=== PATIENT | female | born 1955 | race African-American/Black ===

== ENCOUNTER → 2017-06-26 | Outpatient (CLI) | payer OTHER ==
--- NOTE | 2017-06-26 11:23 | WOMENS IMAGING REPORT ---
EXAM DESCRIPTION: BILAT SCREENING MAMMO W/CAD COMPLETED DATE/TIME: 06/26/2017 7:57 am REASON FOR STUDY: ROUTINE BILATERAL SCREENING;Z12.31 Z12.31 ENCNTR SCREEN MAMMOGRAM FOR MALIGNANT N EOPLASM OF ELI COMPARISON: 2010 to 2013 TECHNIQUE: Standard craniocaudal and mediolateral oblique views of each breast recorded using [employer] l acquisition. LIMITATIONS: None. FINDINGS: No masses, calcifications or architectural distortion. No areas of suspicion. Read with the assistance of CAD. .[facility] - R2 [employer] Version 1.3 .[facility] - R2 Cenova Version 1.3 .[facility] - R2 Cenova Version 2.4 .[facility] [place] - R2 Cenova Version 2.4 .[facility] - R2 [employer] Tester Version 9.2 IMPRESSION: NORMAL MAMMOGRAM. BIRADS 1. BREAST DENSITY: b. There are scattered areas of fibroglandular density. BIRAD: 1 NEGATIVE RECOMMENDATION: ROUTINE SCREENING COMMENT: The patient has been notified of the results by letter per SA requirements. Additional no tification policies are in place for contacting patient with suspicious or incomplete findings. Quality ID #[id number]: The [employer] recommends an annual screening mammogram for women aged 40 years or over. This facility utilizes a reminder system to ensure that all patients receive reminder letters, and/or direct phone calls for appointments. This includes reminders for routine scr eening mammograms, diagnostic mammograms, or other Breast Imaging Interventions when appropriate. Th is patient will be placed in the appropriate reminder system. The [employer] (ACR) has developed recommendations for screening MRI of the breast s in certain patient populations, to be used in conjunction with mammography. Breast MRI surveillanc e may be appropriate for women with more than 20% lifetime risk of developing breast cancer as deter mined by genetic testing, significant family history of the disease, or history of mantle radiation f or Hodgkins Disease. ACR Practice Guidelines 2008. TECHNICAL DOCUMENTATION: FINDING NUMBER: (1) ASSESSMENT: (1) JOB ID: [id number] [employer]- All Rights Reserved
== END ==
LOC: WI 08:13
PROVIDERS: ATTEND Family Medicine
DX: Z12.31 Encounter for screening mammogram for malignant neoplasm of breast (principal)
CPT/HCPCS: 77067; G0202

== ENCOUNTER 2017-06-28 08:53 | Day surgery (SDC) | payer OTHER ==
[2017-06-28] MEDS ORDERED: MIDAZOLAM 2 MG/2 ML INJ ONE (10:41)
[2017-06-28] MEDS ORDERED: PROPOFOL INJ 200 MG/20 ML VIAL IV ONE (10:41)
[2017-06-28] MEDS ORDERED: PROMETHAZINE HCL INJ 25 MG/1 ML VIAL IV PRN ×2 (10:55)
[2017-06-28] MEDS ORDERED: MEPERIDINE HCL/PF INJ 25 MG/1 ML DISP.SYRIN IV PRN (10:55)
[2017-06-28] MEDS ORDERED: DIPHENHYDRAMINE HCL 50 MG/ML VIAL IV PRN (10:55)
[2017-06-28] MEDS ORDERED: FENTANYL CITRATE INJ/PF 100 MCG/2 ML AMPUL IV PRN ×3 (10:55)
--- NOTE | 2017-06-28 11:14 | Operative Report ---
Operative Report DATE OF SURGERY: 06/28/17 Operative Report: The risks, benefits and alternatives of the procedure including risks of bleeding, perforation requiring surgery are explained to the patient in detail and informed consent is obtained. The patient is brought to the endoscopy suite and placed in a left, lateral decubital position. Timeout was called. Propofol medications administered. A rectal examination was done which did not reveal any masses, tears or fissures. An Olympus videoscope was inserted into the patient's rectum. The scope was then carefully advanced all the way to the cecum. The cecum was identified by the usual anatomical landmarks including the ileocecal valve as well as the appendiceal office. Good visualization is obtained. Prep is good. Photodocumentation was obtained. The scope was then sequentially pulled back via the various segments of the colon including the ascending colon, hepatic flexure, transverse colon, splenic flexure, descending colon finding to the rectosigmoid portions of the colon. Retroflexion maneuver was performed. PREOPERATIVE DIAGNOSIS: Surveillance colonoscopy for history of polyps POSTOPERATIVE DIAGNOSIS: Small polyp noted in the rectum status post biopsy. Diverticulosis. Internal hemorrhoids OPERATION: Colonoscopy with biopsy SURGEON: MICHAEL LEVY ANESTHESIA: LMAC TISSUE REMOVED OR ALTERED: As noted above. COMPLICATIONS: None. ESTIMATED BLOOD LOSS: None. INTRAOPERATIVE FINDINGS: As described above. PROCEDURE: Patient tolerated procedure well. No immediate postprocedure complications are noted. Patient discharged in good condition. Discharge date 06/28/2017. Discharge diet: Regular. Discharge activity: Regular. 2-3 week follow-up to discuss findings. Patient is instructed to call the office or proceed to the emergency room should there be any further problems or questions. We will await pathology. 5 year surveillance colonoscopy.
[2017-06-28 12:22] VITALS: BP 102/56
--- NOTE | 2017-06-28 21:58 | EKG REPORT ---
SEVERITY:- NORMAL ECG - SINUS RHYTHM : Confirmed by: Yosi Kahn 28-Jun-2017 21:57:55
== END 2017-06-28 12:36 | disposition home or self-care (01) ==
LOC: OROUT 08:53
PROVIDERS: ATTEND Internal Medicine Gastroenterology
PROC: 0DBP8ZX Excision of Rectum, Via Natural or Artificial Opening Endoscopic, Diagnostic (ICD-10-PCS; principal; 2017-06-28 11:00)
DX: Z12.11 Encounter for screening for malignant neoplasm of colon (principal); K62.1 Rectal polyp; K57.30 Diverticulosis of large intestine without perforation or abscess without bleeding; K64.8 Other hemorrhoids; E11.9 Type 2 diabetes mellitus without complications; I10 Essential (primary) hypertension; E78.5 Hyperlipidemia, unspecified; Z79.84 Long term (current) use of oral hypoglycemic drugs; Z79.899 Other long term (current) drug therapy
CPT/HCPCS: 45380; 36415; 82962; 84132; 88305 ×2; 93005; 93010; J2704; 810; J2250

== ENCOUNTER → 2017-09-17 | Outpatient (CLI) | payer OTHER ==
[2017-09-17 08:31] LABS: ALANINE AMINOTRANSFERASE 22 U/L (9-52); ALBUMIN 4.4 g/dL (3.5-5.0); ALKALINE PHOSPHATASE 78 U/L (38-126); ANION GAP 13 (5-19); ASPARTATE AMINO TRANSFERASE 30 U/L (14-36); BILIRUBIN,DIRECT 0.3 mg/dL (0.0-0.4); BLOOD UREA NITROGEN 23 mg/dL (7-20); CALCIUM 9.9 mg/dL (8.4-10.2); CARBON DIOXIDE 29 mmol/L (22-30); CHLORIDE 103 mmol/L (98-107); CHOLESTEROL 149.45 mg/dL (0-200); CREATININE RESULT 0.79 mg/dL (0.52-1.25); Direct HDL 51 mg/dL (>40); GLUCOSE 101 mg/dL (75-110); MAGNESIUM 1.9 mg/dL (1.6-2.3); POTASSIUM 4.5 mmol/L (3.6-5.0); TOTAL PROTEIN 6.9 g/dL (6.3-8.2); TRIGLYCERIDES 97 mg/dL (<150)
[2017-09-17 08:41] LABS: DIRECT LDL 75 mg/dL (<100)
== END ==
LOC: OD 07:12
PROVIDERS: ATTEND Internal Medicine Cardiovascular Disease
DX: E05.90 Thyrotoxicosis, unspecified without thyrotoxic crisis or storm (principal); E78.2 Mixed hyperlipidemia; Z79.899 Other long term (current) drug therapy; R00.2 Palpitations
CPT/HCPCS: 36415; 80048; 80061; 80076; 83735; 84439; 84443

== ENCOUNTER → 2017-09-27 | Outpatient (CLI) | payer OTHER ==
[2017-09-27 11:31] LABS: THYROID STIMULATING HORMONE 0.06 uIU/mL (0.47-4.68)
== END ==
LOC: OD 09:13
PROVIDERS: ATTEND Internal Medicine Cardiovascular Disease
DX: E05.90 Thyrotoxicosis, unspecified without thyrotoxic crisis or storm (principal)
CPT/HCPCS: 36415; 84439; 84443

== ENCOUNTER → 2017-11-07 | Outpatient (CLI) | payer OTHER ==
--- NOTE | 2017-11-08 14:10 | RADIOLOGY REPORT (SQ) ---
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 RADIONUCLIDE AND DOSE: 316 microcuries I-123 The route of agent administration: Oral ADDITIONAL DRUGS AND DOSES: None. TECHNIQUE: Iodine uptake was measured at 4 and 24 hours. Images of the neck were acquired. LIMITATIONS: None. FINDINGS: 4 HOUR UPTAKE RADIO-IODINE: 7.2%. Normal Range of 5-20% [facility] Normal Range of 5-15% [facility] Normal Range of 5-15% [facility] 24 HOUR UPTAKE RADIO-IODINE: 12.4%. Normal Range of 7-35% [facility] Normal Range of 8-35% [facility] Normal Range of 15-30% [facility] SCAN: Heterogeneous uptake within normal size gland. OTHER: No other significant finding. IMPRESSION: Decreased uptake. Heterogeneous gland. NORMAL UPTAKE OF IODINE. TECHNICAL DOCUMENTATION: JOB ID: [id number] [employer]- All Rights Reserved
== END ==
LOC: RAD 08:38
PROVIDERS: ATTEND Internal Medicine Endocrinology, Diabetes & Metabolism
DX: E04.2 Nontoxic multinodular goiter (principal)
CPT/HCPCS: 78014; A9516

== ENCOUNTER 2018-03-10 09:46 | Emergency (ER) | payer BC, OTHER ==
[2018-03-10 09:52] VITALS: BP 121/58
[2018-03-10] MEDS ORDERED: OXYMETAZOLINE HCL 0.05% NASAL SPRAY 15 ML BOTTLE NASL ONE (10:35)
--- NOTE | 2018-03-10 10:43 | ER Document Report ---
ED General - General Chief Complaint: Nose Bleed Stated Complaint: NOSE BLEED Time Seen by Provider: 03/10/18 10:35 Notes: 62-year-old female here with complaints of nosebleeds ongoing for the past 4 months. They started when she had a cold back in October that has since long resolved but is having intermittent nosebleeds. She has been applying pressure which has been helping. At times, she was using saline nasal spray back at initial onset of the nosebleeds but has not been using it recently. She denies any nose picking or other foreign body insertion. Denies any other symptoms. TRAVEL OUTSIDE OF THE [place] IN LAST 30 DAYS: No - Related Data Allergies/Adverse Reactions: No Known Allergies Allergy (Verified 03/10/18 09:47) Past Medical History - Social History Smoking Status: Never Smoker Frequency of alcohol use: None Drug Abuse: None Family History: Reviewed & Not Pertinent Patient has suicidal ideation: No Patient has homicidal ideation: No - Past Medical History Cardiac Medical History: Reports: Hx Hypertension - ON MEDICATION Denies: Hx Coronary Artery Disease, Hx Heart Attack Pulmonary Medical History: Denies: Hx Asthma, Hx Bronchitis, Hx COPD, Hx Pneumonia Neurological Medical History: Denies: Hx Cerebrovascular Accident, Hx Seizures Endocrine Medical History: Reports: Hx Diabetes Mellitus Type 2 Renal/ Medical History: Denies: Hx Peritoneal Dialysis Musculoskeltal Medical History: Denies Hx Arthritis Past Surgical History: Reports: Hx Abdominal Surgery - Immunizations Hx Diphtheria, Pertussis, Tetanus Vaccination: Yes Review of Systems - Review of Systems Notes: See history of present illness for pertinent positive review of systems; otherwise all review of systems have been reviewed and are negative Physical Exam - Vital signs Vitals: Temp Pulse Resp BP Pulse Ox 97.8 F 94 20 121/58 L 97 03/10/18 09:51 03/10/18 09:51 03/10/18 09:51 03/10/18 09:51 03/10/18 09:51 - Notes Notes: PHYSICAL EXAMINATION: GENERAL: Well-appearing and in no acute distress. HEAD: Atraumatic, normocephalic. EYES: Pupils equal round and reactive to light, extraocular movements intact, sclera anicteric, conjunctiva are normal. ENT: nares patent, oropharynx clear without exudates. Moist mucous membranes. Nasal mucosa mildly inflamed bilaterally with minimal spots of dried blood visualized. No active bleeding. No blood in oropharynx NECK: Normal range of motion, supple without lymphadenopathy LUNGS: CTAB and equal. No wheezes rales or rhonchi. HEART: Regular rate and rhythm without murmurs ABDOMEN: Soft, no tenderness. No facial grimacing/wincing upon palpation. No guarding, no rebound. EXTREMITIES: Normal range of motion, no pitting edema. No cyanosis. NEUROLOGICAL: Cranial nerves grossly intact. Normal sensory/motor exams. PSYCH: Normal mood, normal affect. SKIN: Warm, Dry, normal turgor, no rashes or lesions noted Course - Re-evaluation Re-evalutation: 03/10/18 10:43 MEDICAL DECISION MAKING: Concern for recurrent epistaxis likely secondary to inflamed mucosa Instructed use of Vaseline to coat and moisturize nasal mucosa Also instructed on use of PRN oxymetazoline spray (denies hypertension) Will give her a take-home bottle from here and instructed follow-up PCP and/or ENT next day or few Patient understands and agrees to the plan of care - Vital Signs Vital signs: Temp Pulse Resp BP Pulse Ox 97.8 F 94 20 121/58 L 97 03/10/18 09:51 03/10/18 09:51 03/10/18 09:51 03/10/18 09:51 03/10/18 09:51 Discharge - Discharge Clinical Impression: Epistaxis Condition: Good Disposition: HOME, SELF-CARE Additional Instructions: You were seen in the emergency department at [facility]. If you were given any sedating medications, be sure not to operate heavy machinery ( example - driving) and be sure you are not too sedated to walk appropriately. Please followup with your primary physician or [facility] ) in the next few days for further management/evaluation. Please return to the emergency department for worsening of symptoms or any symptom that you deem to be concerning or life-threatening. Thank you for allowing us to be part of your care.
== END 2018-03-10 10:41 | disposition home or self-care (01) ==
LOC: ER 09:46
DX: R04.0 Epistaxis (principal); I10 Essential (primary) hypertension
CPT/HCPCS: 99283; J3490

== ENCOUNTER → 2019-03-05 | Outpatient (CLI) | payer BC | LOC: WI 11:19 | PROVIDERS: ATTEND Family Medicine | DX: Z12.31 Encounter for screening mammogram for malignant neoplasm of breast (principal) | CPT/HCPCS: 77067 ==

== ENCOUNTER → 2019-08-25 | Outpatient (CLI) | payer BC ==
--- NOTE | 2019-08-25 11:54 | WOMENS IMAGING REPORT ---
EXAM DESCRIPTION: BONE DENSITY HIP/SPINE COMPLETED DATE/TIME: 08/25/2019 10:34 am REASON FOR STUDY: M81.0 BONE SCAN M81.0 AGE-RELATED OSTEOPOROSIS W/O CURRENT PATHOLOGICAL FRAC COMPARISON: None. TECHNIQUE: Dual-Energy X-ray Absorptiometry (DEXA) of the AP Spine and Hip. LIMITATIONS: None. FINDINGS: LUMBAR SPINE: The bone mineral density (BMD) measured from L1-L4 in the AP projection correlates with a T-score of 0.4, which is normal as defined by the World Health Organization. BMD Change vs Baseline: N/A HIP: The bone mineral density (BMD) measured in the left hip correlates with a T-score of 0.1, which is no rmal as defined by the World Health Organization. BMD Change vs Baseline: N/A 10 year Fracture Risk Assessment: Major Osteoporotic Fracture: Not available. Hip Fracture: Not available. IMPRESSION: 1. LUMBAR SPINE WHO CLASSIFICATION: Normal 2. HIP WHO CLASSIFICATION: Normal OVERALL ASSESSMENT: WHO CLASSIFICATION: Normal COMMENT: The World Health Organization defines low BMD as follows: T-score: Normal: Greater than -1.0 Osteopenia: Between -1.0 and -2.5 Osteoporosis: Less than -2.5 without fractures Established osteoporosis: Less than -2.5 with fractures In general, you may wish to consider: Diagnosis Treatment Follow-up DEXA Normal BMD Prevention 2-3 years Osteopenia Prevention/Therapy 1-2 years Osteoporosis Therapy Yearly TECHNICAL DOCUMENTATION: JOB ID: [id number] [employer]- All Rights Reserved Reading location - IP/workstation name: [email or web address]
== END ==
LOC: WI 09:40
PROVIDERS: ATTEND Family Medicine
DX: M81.0 Age-related osteoporosis without current pathological fracture (principal)
CPT/HCPCS: 77080

== ENCOUNTER → 2020-04-27 | Outpatient (CLI) | payer BC | LOC: WI 13:07 | PROVIDERS: ATTEND Family Medicine | DX: Z12.31 Encounter for screening mammogram for malignant neoplasm of breast (principal) | CPT/HCPCS: 77063; 77067 ==

== ENCOUNTER 2020-05-03 18:35 | Inpatient (IN) | payer BC ==
[2020-05-03] MEDS ORDERED: NORMAL SALINE 1000 ML 1,000 ML IV ONE (18:57)
[2020-05-03] MEDS ORDERED: ONDANSETRON HCL INJ/PF 4 MG/2 ML SDV IV ONE (18:57)
--- NOTE | 2020-05-03 19:00 | ER Document Report ---
ED Medical Screen (RME) - General Chief Complaint: Abdominal Pain Stated Complaint: ABDOMINAL PAIN Time Seen by Provider: 05/03/20 18:48 Primary Care Provider: COLT LOVETT DO [Primary Care Provider] - Follow up as needed TRAVEL OUTSIDE OF THE [place] IN LAST 30 DAYS: No - HPI Notes: 05/03/20 18:58 64-year-old female presents emergency room with lower abdominal pain that starte d approximately 6 hours ago when she woke up. States that she has vomited 3 times. Reports pain is worse with eating or drinking. Tried Pepto-Bismol without any relief. Denies any new medication foods or travel. Patient states she had a colonoscopy and says that they "did not find anything", unsure of date. Patient lives alone, so no one else is sick in the household. Denies any fevers but reports chills. Denies any chest pain shortness of breath, numbness or tingling down arms or legs, sore throat, neck pain, coughing. Denies history of IBS or Crohn's. I have greeted and performed a rapid initial assessment of this patient. A comprehensive ED assessment and evaluation of the patient, analysis of test results and completion of the medical decision making process will be conducted by additional ED providers. PHYSICAL EXAMINATION: GENERAL: Well-appearing, well-nourished and in mild distress HEAD: Atraumatic, normocephalic. EYES: Pupils equal round extraocular movements intact, conjunctiva are normal. NECK: Normal range of motion CV: s1, s2 regular LUNGS: No respiratory distress abd: Right lower quadrant abdominal pain, left lower quadrant abdominal pain. No CVA tenderness appreciated bilaterally 05/03/20 18:59 - Related Data Allergies/Adverse Reactions: No Known Allergies Allergy (Verified 05/03/20 18:50) Home Medications: metformin, lisinopril, simvastatin, Past Medical History - Social History Chew tobacco use (# tins/day): No Frequency of alcohol use: None Drug Abuse: None - Past Medical History Cardiac Medical History: Reports: Hx Hypertension - ON MEDICATION Denies: Hx Coronary Artery Disease, Hx Heart Attack Pulmonary Medical History: Denies: Hx Asthma, Hx Bronchitis, Hx COPD, Hx Pneumonia Neurological Medical History: Denies: Hx Cerebrovascular Accident, Hx Seizures Endocrine Medical History: Reports: Hx Diabetes Mellitus Type 2 Renal/ Medical History: Denies: Hx Peritoneal Dialysis Musculoskeltal Medical History: Denies Hx Arthritis Past Surgical History: Reports: Hx Abdominal Surgery - Immunizations Hx Diphtheria, Pertussis, Tetanus Vaccination: Yes Physical Exam - Vital signs Vitals: Temp Pulse Resp BP Pulse Ox 99.0 F 94 20 137/67 H 100 05/03/20 18:39 05/03/20 18:39 05/03/20 18:39 05/03/20 18:39 05/03/20 18:39 Course - Vital Signs Vital signs: Temp Pulse Resp BP Pulse Ox 99 F 94 20 137/67 H 100 05/03/20 18:48 05/03/20 18:39 05/03/20 18:39 05/03/20 18:39 05/03/20 18:39 Doctor's Discharge - Discharge Referrals: COLT LOVETT DO [Primary Care Provider] - Follow up as needed
[2020-05-03 19:39] LABS: ABSOLUTE BASOPHILS # (AUTO) 0.1 10^3/uL (0.0-0.2); ABSOLUTE MONOCYTES (AUTO) 0.4 10^3/uL (0.1-1.4); ABSOLUTE NEUT (AUTO) 10.2 10^3/uL (1.7-8.2); BASOPHILS % (AUTO) 0.5 % (0-2); HEMATOCRIT 45.7 % (36.0-47.0); HEMOGLOBIN 15.5 g/dL (12.0-15.5); MEAN CORPUSCULAR VOLUME 88 fl (80-97); MONOCYTES % (AUTO) 3.6 % (3-13); PLATELET COUNT 264 10^3/uL (150-450); RED BLOOD COUNT 5.18 10^6/uL (3.72-5.28); SEGMENTED NEUTROPHILS % (AUTO) 86.9 % (42-78); TOTAL CELLS COUNTED % (AUTO) 100 %; WHITE BLOOD COUNT 11.7 10^3/uL (4.0-10.5)
[2020-05-03 19:42] LABS: APPEARANCE,URINE SLIGHTLY-CLOUDY; BILIRUBIN,URINE NEGATIVE (NEGATIVE); COLOR,URINE YELLOW; GLUCOSE, URINE NEGATIVE (NEGATIVE); KETONES,URINE TRACE mg/dL (NEGATIVE); LEUKOCYTE ESTERASE,URINE NEGATIVE (NEGATIVE); NITRITE,URINE NEGATIVE (NEGATIVE); PROTEIN,URINE NEGATIVE (NEGATIVE); URINE SPECIFIC GRAVITY 1.026
[2020-05-03 20:26] LABS: ALBUMIN 4.7 g/dL (3.5-5.0); ALKALINE PHOSPHATASE 70 U/L (38-126); ANION GAP 9 (5-19); ASPARTATE AMINO TRANSFERASE 38 U/L (14-36); BILIRUBIN,TOTAL 0.9 mg/dL (0.2-1.3); BLOOD UREA NITROGEN 19 mg/dL (7-20); CALCIUM 10.6 mg/dL (8.4-10.2); CARBON DIOXIDE 30 mmol/L (22-30); CHLORIDE 99 mmol/L (98-107); GLUCOSE 181 mg/dL (75-110); POTASSIUM 4.1 mmol/L (3.6-5.0); TOTAL PROTEIN 7.8 g/dL (6.3-8.2)
--- NOTE | 2020-05-03 21:06 | RADIOLOGY REPORT (SQ) ---
EXAM DESCRIPTION: CT ABDOMEN PELVIS WITH IV CONTRAST COMPLETED DATE/TME: 05/03/2020 18:56 CLINICAL HISTORY: 64 years, Female, LLQ/RLQ abd pain, n/v x 7 hours This exam was performed according to our departmental dose-optimization program which includes automated exposure control, adjustment of the mA and/or kVp according to patient size and/or use of iterative reconstruction technique where applicable. FINDINGS: Visualized lung bases are within normal limits. Liver, spleen, pancreas, gallbladder, adrenal glands and kidneys are within normal limits. No hydronephrosis or biliary dilatation. Moderately dilated loops of small bowel are noted in the left abdomen with transition point to decompressed loops of small bowel in the mid pelvis. The appendix is normal. Small amount of fluid layering in the pelvis. The gynecologic organs are unremarkable. No abdominal or pelvic lymphadenopathy. Abdominal aorta is mildly calcified without aneurysm. IMPRESSION: Findings of moderate mid small bowel obstruction with transition point in the mid pelvis. Small amount of fluid layering in the pelvis.
[2020-05-03] MEDS ORDERED: LIDOCAINE 2% INJ-PF (20 MG/ML) 10 ML AMPUL NEB ONE (21:30)
[2020-05-03] MEDS ORDERED: HYDROMORPHONE HCL INJ/PF 2 MG/ML AMPULE IV ONE (21:30)
--- NOTE | 2020-05-03 21:43 | ER Document Report ---
ED General - General Chief Complaint: Abdominal Pain Stated Complaint: ABDOMINAL PAIN Time Seen by Provider: 05/03/20 18:48 Primary Care Provider: COLT LOVETT DO [Primary Care Provider] - Follow up as needed Notes: 64-year-old female presents emergency department complaining of 1 day of generalized abdominal pain associate with nausea and vomiting which is nonbloody. She is passing lots of gas and says she had one small formed bowel movement this morning. Patient admits to 1 laparoscopic surgery years ago due to a displaced IUD. Denies any prior history of small bowel obstruction. Denies any fevers or chills. TRAVEL OUTSIDE OF THE [place] IN LAST 30 DAYS: No - Related Data Allergies/Adverse Reactions: No Known Allergies Allergy (Verified 05/03/20 18:50) Home Medications: metformin, lisinopril, simvastatin, Past Medical History - General Information source: Patient - Social History Smoking Status: Never Smoker Chew tobacco use (# tins/day): No Frequency of alcohol use: None Drug Abuse: None Family History: Reviewed & Not Pertinent - Past Medical History Cardiac Medical History: Reports: Hx Hypertension - ON MEDICATION Denies: Hx Coronary Artery Disease, Hx Heart Attack Pulmonary Medical History: Denies: Hx Asthma, Hx Bronchitis, Hx COPD, Hx Pneumonia Neurological Medical History: Denies: Hx Cerebrovascular Accident, Hx Seizures Endocrine Medical History: Reports: Hx Diabetes Mellitus Type 2 Renal/ Medical History: Denies: Hx Peritoneal Dialysis Musculoskeletal Medical History: Denies Hx Arthritis Past Surgical History: Reports: Hx Abdominal Surgery - Immunizations Hx Diphtheria, Pertussis, Tetanus Vaccination: Yes Review of Systems - Review of Systems Constitutional: No symptoms reported Gastrointestinal: See HPI -: Yes All other systems reviewed and negative Physical Exam - Vital signs Vitals: Temp Pulse Resp BP Pulse Ox 99.0 F 94 20 137/67 H 100 05/03/20 18:39 05/03/20 18:39 05/03/20 18:39 05/03/20 18:39 05/03/20 18:39 Interpretation: Normal - Notes Notes: GENERAL: Alert, interacts well. No acute distress. HEAD: Normocephalic, atraumatic EYES: Pupils equal, round and reactive to light, extraocular movements intact. ENT: Oral mucosa moist, tongue midline. NECK: Full range of motion, supple, trachea midline. LUNGS: Clear to auscultation bilaterally, no wheezes, rales or rhonchi, no respiratory distress. HEART: Regular rate and rhythm, no murmurs, gallops, rubs. ABDOMEN: Soft, tender palpation periumbilically and suprapubically, minimal distention, nondistended, bowel sounds present in all 4 quadrants. EXTREMITIES: Moves all 4 extremities spontaneously, no edema, radial and dorsalis pedis pulses 2/4 bilaterally. No cyanosis. NEUROLOGICAL: Alert and oriented x3, normal speech. PSYCH: Normal mood, normal affect. SKIN: Warm, Dry, normal turgor, no rashes or lesions noted. Course - Re-evaluation Re-evalutation: 05/03/20 21:45 Last menstrual period is 04/01/2020. CBC shows leukocytosis of 11.7, CMP shows elevated glucose at 181, she is a known diabetic, lactic acid minimally elevated at 2.2, urinalysis shows trace ketones. CT scan of the abdomen and pelvis with IV contrast shows small bowel obstruction. Patient is being hydrated, will be treated with a lidocaine breathing treatment for comfort and then NG tube will be placed. Discussed case with Dr. Dominguez who states he will consult and requests a CT scan of the abdomen pelvis with oral contrast. I have called hosp [facility] to try and initiate admission. I am awaiting a phone call back. No indication for emergent surgery this evening per my examination. I will await Dr. Dominguez's consult. Abdomen/Pelvis CT 05/03/20 18:56 IMPRESSION: Findings of moderate mid small bowel obstruction with transition point in the mid pelvis. Small amount of fluid layering in the pelvis. 05/03/20 22:[address] Tran to medical floor. - Vital Signs Vital signs: Temp Pulse Resp BP Pulse Ox 99 F 94 20 137/67 H 100 05/03/20 18:48 05/03/20 18:39 05/03/20 18:39 05/03/20 18:39 05/03/20 18:39 - Laboratory Result Diagrams: 05/03/20 19:14 05/03/20 19:14 Laboratory results interpreted by me: 05/03/20 05/03/20 05/03/20 19:14 19:14 19:14 WBC 11.7 H Lymph % (Auto) 9.0 L Absolute Neuts (auto) 10.2 H Seg Neutrophils % 86.9 H Glucose 181 H Lactic Acid 2.2 H Calcium 10.6 H AST 38 H Urine Ketones Urine Urobilinogen Urine Ascorbic Acid 05/03/20 19:14 WBC Lymph % (Auto) Absolute Neuts (auto) Seg Neutrophils % Glucose Lactic Acid Calcium AST Urine Ketones TRACE H Urine Urobilinogen 2.0 H Urine Ascorbic Acid 40 H Discharge - Discharge Clinical Impression: Small bowel obstruction Condition: Fair Disposition: ADMITTED INPATIENT Admitting Provider: Chelsea (Hospitalist) Unit Admitted: Medical Floor Referrals: COLT LOVETT DO [Primary Care Provider] - Follow up as needed
--- NOTE | 2020-05-03 22:01 | PDOC CONSULTATION ---
Consultation Consult Date: 05/03/20 Attending physician:: RANJEET ALMODOVAR Provider Consulted: RUPAL ROBERTS Consult reason:: Small bowel obstruction History of Present Illness Admission Date/PCP: COLT LOVETT DO History of Present Illness: BLANCA LAMB is a 64 year old female Presents to the emergency department via ground rescue complaining of 1 day history of abdominal pain, several episodes of vomiting last bowel movement, normal this morning. Patient seen the emergency department, found to have abdominal tenderness, had a CT scan of the abdomen and pelvis without oral contrast which suggested a small bowel obstruction. Surgery was consulted. Patient was found to be dehydrated. Recommendations were made for the patient to be admitted to the hospitalist service with surgery following in consultation. Patient denies previous history of small bowel obstructions. She denies history of trauma. Last colonoscopy by Dr. Muñoz, reportedly negative, 2 years ago. Past Medical History Past Medical History: Hypertension, hyperlipidemia, diabetes mellitus Cardiac Medical History: Reports: Hypertension - ON MEDICATION Denies: Coronary Artery Disease, Myocardial Infarction Pulmonary Medical History: Denies: Asthma, Bronchitis, Chronic Obstructive Pulmonary Disease (COPD), Pneumonia Neurological Medical History: Denies: Seizures Endocrine Medical History: Reports: Diabetes Mellitus Type 2 Musculoskeltal Medical History: Denies: Arthritis Hematology: Denies: Anemia Past Surgical History Past Surgical History: Oratory laparoscopy, laparotomy for displaced IUD, [facility] , many years ago Social History Information Source: Patient Smoking Status: Never Smoker Electronic Cigarette use?: No Frequency of Alcohol Use: Rare Hx Recreational Drug Use: No Hx Prescription Drug Abuse: No Family History Family History: None, Reviewed & Not Pertinent Parental Family History Reviewed: No Children Family History Reviewed: No Sibling(s) Family History Reviewed.: No Medication/Allergy Home Medications: Metformin HCl [Glucophage] 1,000 mg PO BID 09/29/14 Simvastatin 20 mg PO DAILY 09/29/14 Aspirin [Aspirin EC] 81 mg PO DAILY 06/28/17 Lisinopril/Hydrochlorothiazide [Lisinopril-Hctz 20-25 mg Tab] 1 tab PO DAILY 06/28/17 Allergies/Adverse Reactions: No Known Allergies Allergy (Verified 05/03/20 18:50) Review of Systems Constitutional: PRESENT: as per HPI Eyes: ABSENT: visual disturbances Ears: ABSENT: hearing changes Cardiovascular: ABSENT: chest pain, dyspnea on exertion, edema, orthropnea, palpitations Genitourinary: ABSENT: dysuria, hematuria Musculoskeletal: ABSENT: joint swelling Neurological: ABSENT: abnormal gait, abnormal speech, confusion, dizziness, focal weakness, syncope Psychiatric: ABSENT: anxiety, depression, homidical ideation, suicidal ideation Endocrine: ABSENT: cold intolerance, heat intolerance, polydipsia, polyuria Physical Exam Vital Signs: Temp Pulse Resp BP Pulse Ox 99 F 94 20 137/67 H 100 05/03/20 18:48 05/03/20 18:39 05/03/20 18:39 05/03/20 18:39 05/03/20 18:39 Intake & Output 05/02/20 05/03/20 05/04/20 06:59 06:59 06:59 Weight 65.1 kg General appearance: PRESENT: no acute distress Head exam: PRESENT: normocephalic Eye exam: PRESENT: EOMI Mouth exam: PRESENT: dry mucosa Neck exam: PRESENT: full ROM Respiratory exam: PRESENT: clear to auscultation anitha Cardiovascular exam: PRESENT: RRR Pulses: PRESENT: normal carotid pulses, normal radial pulses GI/Abdominal exam: PRESENT: distended - No peritoneal signs no rigidity, mildly distended. No groin or umbilical masses. Rectal exam: PRESENT: deferred Extremities exam: PRESENT: full ROM Neurological exam: PRESENT: oriented to person, oriented to place, oriented to time Psychiatric exam: PRESENT: appropriate affect Skin exam: PRESENT: dry Results Laboratory Results: 05/03/20 19:14 05/03/20 19:14 05/03/20 05/03/20 05/03/20 19:14 19:14 19:14 WBC 11.7 H RBC 5.18 Hgb 15.5 Hct 45.7 MCV 88 MCH 30.0 MCHC 34.0 RDW 14.0 Plt Count 264 Seg Neutrophils % 86.9 H Sodium 137.8 Potassium 4.1 Chloride 99 Carbon Dioxide 30 Anion Gap 9 BUN 19 Creatinine 0.76 Est GFR ( Amer) > 60 Glucose 181 H Lactic Acid 2.2 H Calcium 10.6 H Total Bilirubin 0.9 AST 38 H Alkaline Phosphatase 70 Total Protein 7.8 Albumin 4.7 Lipase 78.2 Urine Color Urine Appearance Urine pH Ur Specific [place] Urine Protein Urine Glucose (UA) Urine Ketones Urine Blood Urine Nitrite Ur Leukocyte Esterase Urine WBC (Auto) Urine RBC (Auto) 05/03/20 19:14 WBC RBC Hgb Hct MCV MCH MCHC RDW Plt Count Seg Neutrophils % Sodium Potassium Chloride Carbon Dioxide Anion Gap BUN Creatinine Est GFR ( Amer) Glucose Lactic Acid Calcium Total Bilirubin AST Alkaline Phosphatase Total Protein Albumin Lipase Urine Color YELLOW Urine Appearance SLIGHTLY-CLOUDY Urine pH 6.0 Ur Specific [place] 1.026 Urine Protein NEGATIVE Urine Glucose (UA) NEGATIVE Urine Ketones TRACE H Urine Blood NEGATIVE Urine Nitrite NEGATIVE Ur Leukocyte Esterase NEGATIVE Urine WBC (Auto) 10 Urine RBC (Auto) 2 Impressions: Abdomen/Pelvis CT 05/03/20 18:56 IMPRESSION: Findings of moderate mid small bowel obstruction with transition point in the mid pelvis. Small amount of fluid layering in the pelvis. Assessment & Plan - Diagnosis (1) Small bowel obstruction Is this a current diagnosis for this admission?: Yes Plan: Impression: Stable early partial small bowel obstruction based on history physical exam findings and none oral contrast CT scan. The patient does not have peritoneal signs, does not need emergent exploration Recommendations: 1. Discussed my impression with Dr. Ranjeet Almodovar; suggested that the patient be admitted to the hospitalist service for hydration, management of chronic medical problems and observation. I have reviewed the CT scan carefully, and there is a fair amount of stagnant material in the early to mid small bowel with gas; there is no free peritoneal fluid, or evidence of vascular compromise to the bowel. There is some gas in the colon. 2. For a more meaningful CT scan, I suggested the patient drink oral contrast and repeat the abdominal scan. If she cannot, then a nasogastric tube with contrast infusion may be helpful in ruling out a true mechanical obstruction. 3. We will follow patient in consultation with hospitalist service (2) Hypertension Is this a current diagnosis for this admission?: Yes (3) Diabetes mellitus Is this a current diagnosis for this admission?: Yes (4) Hypercholesterolemia Is this a current diagnosis for this admission?: Yes - Time Time Spent: 30 to 50 Minutes Smoking Cessation Education: over 10 minutes Medications reviewed and adjusted accordingly: Yes Anticipated discharge: Home
[2020-05-03] MEDS ORDERED: MORPHINE SULFATE 10 MG/ML INJ IV PRN ×3 (22:08→22:23)
[2020-05-03] MEDS ORDERED: DEXTROSE 50%-WATER 25 GM/50 ML DISP.SYRIN IV PRN ×2 (22:08)
[2020-05-03] MEDS ORDERED: ACETAMINOPHEN 650 MG SUPP.RECT PR PRN (22:08)
[2020-05-03] MEDS ORDERED: DEXTROSE 40% GEL 15 GM TUBE PO PRN ×2 (22:08)
[2020-05-03] MEDS ORDERED: HYDRALAZINE HCL INJ/PF 20 MG/1 ML SDV IV PRN (22:08)
[2020-05-03] MEDS ORDERED: LORAZEPAM INJ 2 MG/1 ML VIAL IV PRN (22:08)
[2020-05-03] MEDS ORDERED: NICOTINE 21 MG/24 HR PATCH.TD24 TD PRN (22:08)
[2020-05-03] MEDS ORDERED: METOPROLOL TARTRATE PF/INJ 5 MG/5 ML SDV IV PRN (22:08)
[2020-05-03] MEDS ORDERED: GLUCAGON,HUMAN RECOMB 1 MG INJ IM PRN (22:08)
--- NOTE | 2020-05-04 00:16 | PDOC H&P ---
History of Present Illness Admission Date/PCP: 05/03/2020 22:16 COLT LOVETT DO Patient complains of: Abdominal pain History of Present Illness: BLANCA LAMB is a 64 year old female who presents the emergency room with acute abdominal pain. She admits being awoken from sleep this morning by constant lower abdominal colicky pain that was of moderately severe intensity initially but progressively worsened over the course of the day becoming generalized throughout her abdomen, without radiation. She had a normal bowel movement and passed a large amount of flatus this morning without improvement or resolution of the abdominal pain. She tried taking Pepto-Bismol also without improvement. Her pain became severe and was accompanied by numerous episodes of vomiting and continuous nausea. Her abdominal pain was associated with episodic chills after vomiting. Her pain was worsened by oral ingestion of food or liquids. She denies other associated or accompanying signs and symptoms. She denies prior similar episodes. She has not identified any additional aggravating or ameliorating factors for her abdominal pain. In the emergency room she was found to have a small bowel obstruction by CT of the abdomen. She was evaluated by Dr. Dominguez and he has asked the hospitalist service to admit the patient and consult him for surgical care. Patient was subsequently admitte d to the hospital for further evaluation treatment. Past Medical History Cardiac Medical History: Reports: Hyperlipidema, Hypertension, Heart Murmur Denies: Atrial Fibrillation, Coronary Artery Disease, DVT, Myocardial Infarction, Pulmonary Embolism Pulmonary Medical History: Denies: Asthma, Bronchitis, Chronic Obstructive Pulmonary Disease (COPD), Pneumonia EENT Medical History: Denies: Cataracts, Ears - Hearing aids Neurological Medical History: Denies: Hemorrhagic CVA, Ischemic CVA, Seizures Endocrine Medical History: Reports: Diabetes Mellitus Type 2 Denies: Diabetes Mellitus Type 1, Hyperthyroidism, Hypothyroidism, Obesity Renal/ Medical History: Denies: Chronic Kidney Disease, Nephrolithiasis Malignancy Medical History: Reports: None GI Medical History: Reports: Other - Colon polyps (benign) Denies: Cirrhosis, Crohn's Disease, Hepatitis, Peptic Ulcer Disease, Ulcerative Colitis Musculoskeltal Medical History: Denies: Arthritis, Gout Skin Medical History: Denies: Eczema, Psoriasis Psychiatric Medical History: Denies: Alcohol Dependency, Substance Abuse, Tobacco Dependency Traumatic Medical History: Reports: None Hematology: Denies: Anemia, Bleeding Tendencies Infectious Medical History: Reports: None Past Surgical History Past Surgical History: Reports: Other - Laparoscopic removal of an extrauterine IUD, colonoscopies Social History Information Source: Patient Lives with: Alone Smoking Status: Never Smoker Electronic Cigarette use?: No Frequency of Alcohol Use: Rare Hx Recreational Drug Use: No Drugs: None Hx Prescription Drug Abuse: No - Advance Directive Resuscitation Status: Full Code Surrogate healthcare decision maker:: Priti Lamb Family History Family History: DM, Hypertension. denies: CAD, Malignancy Parental Family History Reviewed: Yes Children Family History Reviewed: No Sibling(s) Family History Reviewed.: Yes Medication/Allergy Home Medications: Metformin HCl [Glucophage] 1,000 mg PO BID 09/29/14 Simvastatin 20 mg PO DAILY 09/29/14 Aspirin [Aspirin EC] 81 mg PO DAILY 06/28/17 Lisinopril/Hydrochlorothiazide [Lisinopril-Hctz 20-25 mg Tab] 1 tab PO DAILY 06/28/17 Allergies/Adverse Reactions: No Known Allergies Allergy (Verified 05/03/20 18:50) Review of Systems Constitutional: PRESENT: as per HPI, chills. ABSENT: fever(s) Eyes: ABSENT: visual disturbances, other - Eye pain Ears: ABSENT: hearing changes, other - Ear pain Nose, Mouth, and Throat: ABSENT: headache(s), sore throat Cardiovascular: ABSENT: chest pain, palpitations Respiratory: ABSENT: cough, dyspnea Gastrointestinal: PRESENT: as per HPI, abdominal pain, nausea, vomiting. ABSENT: constipation, diarrhea Genitourinary: ABSENT: dysuria, hematuria Musculoskeletal: ABSENT: back pain, joint swelling Integumentary: ABSENT: pruritus, rash Neurological: ABSENT: confusion, convulsions, focal weakness, memory loss, syncope Psychiatric: ABSENT: anxiety, depression Endocrine: ABSENT: cold intolerance, heat intolerance, polydipsia, polyphagia, polyuria Hematologic/Lymphatic: ABSENT: easy bleeding, easy bruising Allergic/Immunologic: ABSENT: seasonal rhinorrhea Physical Exam Vital Signs: Temp Pulse Resp BP Pulse Ox 99 F 94 20 137/67 H 100 05/03/20 18:48 05/03/20 18:39 05/03/20 18:39 05/03/20 18:39 05/03/20 18:39 Intake & Output 05/01/20 05/02/20 05/03/20 23:59 23:59 23:59 Intake Total 1000 Balance 1000 Weight 65.1 kg General appearance: PRESENT: cooperative, mild distress - Secondary to abdominal pain Head exam: PRESENT: atraumatic, normocephalic Eye exam: PRESENT: conjunctiva pink. ABSENT: conjunctival injection, scleral icterus Ear exam: PRESENT: normal external ear exam. ABSENT: bleeding, drainage Mouth exam: PRESENT: dry mucosa, neck supple, other - NG tube in place Neck exam: ABSENT: thyromegaly, tracheal deviation Respiratory exam: PRESENT: clear to auscultation anitha, symmetrical, unlabored Cardiovascular exam: PRESENT: RRR. ABSENT: clicks, gallop, rubs Pulses: PRESENT: normal radial pulses, normal dorsalis pedis pul Vascular exam: PRESENT: normal capillary refill. ABSENT: pallor GI/Abdominal exam: PRESENT: distended - Mild distention, hypoactive bowel sounds, soft, tenderness - Mild generalized tenderness to palpation, other - NG tube in place Rectal exam: PRESENT: deferred Extremities exam: ABSENT: joint swelling, pedal edema Musculoskeletal exam: ABSENT: deformity, dislocation Neurological exam: PRESENT: alert, oriented to person, oriented to place, oriented to time, oriented to situation, CN II-XII grossly intact. ABSENT: motor sensory deficit Psychiatric exam: PRESENT: appropriate affect, normal mood Skin exam: PRESENT: dry, intact, warm. ABSENT: jaundice, rash, urticaria Results Laboratory Results: 05/03/20 19:14 05/03/20 19:14 05/03/20 05/03/20 05/03/20 19:14 19:14 19:14 WBC 11.7 H RBC 5.18 Hgb 15.5 Hct 45.7 MCV 88 MCH 30.0 MCHC 34.0 RDW 14.0 Plt Count 264 Seg Neutrophils % 86.9 H Sodium 137.8 Potassium 4.1 Chloride 99 Carbon Dioxide 30 Anion Gap 9 BUN 19 Creatinine 0.76 Est GFR ( Amer) > 60 Glucose 181 H Lactic Acid 2.2 H Calcium 10.6 H Total Bilirubin 0.9 AST 38 H Alkaline Phosphatase 70 Total Protein 7.8 Albumin 4.7 Lipase 78.2 Urine Color Urine Appearance Urine pH Ur Specific [place] Urine Protein Urine Glucose (UA) Urine Ketones Urine Blood Urine Nitrite Ur Leukocyte Esterase Urine WBC (Auto) Urine RBC (Auto) 05/03/20 19:14 WBC RBC Hgb Hct MCV MCH MCHC RDW Plt Count Seg Neutrophils % Sodium Potassium Chloride Carbon Dioxide Anion Gap BUN Creatinine Est GFR ( Amer) Glucose Lactic Acid Calcium Total Bilirubin AST Alkaline Phosphatase Total Protein Albumin Lipase Urine Color YELLOW Urine Appearance SLIGHTLY-CLOUDY Urine pH 6.0 Ur Specific [place] 1.026 Urine Protein NEGATIVE Urine Glucose (UA) NEGATIVE Urine Ketones TRACE H Urine Blood NEGATIVE Urine Nitrite NEGATIVE Ur Leukocyte Esterase NEGATIVE Urine WBC (Auto) 10 Urine RBC (Auto) 2 Impressions: Abdomen/Pelvis CT 05/03/20 18:56 IMPRESSION: Findings of moderate mid small bowel obstruction with transition point in the mid pelvis. Small amount of fluid layering in the pelvis. Assessment and Plan - Diagnosis (1) Small bowel obstruction Is this a current diagnosis for this admission?: Yes (2) Diabetes mellitus type 2 in nonobese Is this a current diagnosis for this admission?: Yes (3) Hypertension Qualifiers: Hypertension type: essential hypertension Qualified Code(s): I10 - Essen tial (primary) hypertension Is this a current diagnosis for this admission?: Yes (4) Hypercholesterolemia Is this a current diagnosis for this admission?: Yes - Plan Summary Summary: Patient will be admitted to the medical floor where she will receive routine supportive and symptomatic cares. Dr. Dominguez will be consulted for surgical evaluation and treatment. She will be given IV fluids utilizing normal saline at 175 mL/h initially. She will receive morphine sulfate 2 to 4 mg IV every 2 hours as needed for pain. She will use Ativan 1 mg IV every 4 hours as needed for anxiety or restlessness. An NG tube has been placed per Dr. Dominguez's orders. CBCs, metabolic profiles, magnesium levels and additional laboratory and/or radiographic evaluations will be obtained as needed. Every 6 hours Accu- Cheks will be performed with sliding scale insulin for hyperglycemia and a hy poglycemic protocol in place. IV metoprolol and/or hydralazine will be used to control blood pressures greater than 160/100 while the patient is unable to take oral medications. She will be n.p.o. - Time Time Spent with patient: 15-24 minutes Medications reviewed and adjusted accordingly: Yes Anticipated discharge: Home - Inpatient Certification Based on my medical assessment, after consideration of the patient's comorbidities, presenting symptoms, or acuity I expect that the services needed warrant INPATIENT care.: Yes I certify that my determination is in accordance with my understanding of Medicare's requirements for reasonable and necessary INPATIENT services [42 CFR 412.3e].: Yes Medical Necessity: Need Close Monitoring Due to Risk of Patient Decompensation, Need For IV Fluids, Need for Pain Control, Risk of Complication if Not Cared For in Hospital
[2020-05-04] MEDS: PANTOPRAZOLE SODIUM 40 MG VIAL IV SCH ×3 (00:34→21:48)
[2020-05-04] MEDS: INSULIN REG, HUMAN 100 UNIT/ML 3 ML VIAL (PYX) SUBCUT SCH ×4 (00:36→17:37)
[2020-05-04] MEDS: NORMAL SALINE 1000 ML 1,000 ML IV PRN ×2 (03:12→18:13)
[2020-05-04] MEDS: HEPARIN SOD (PORCINE) 5,000 UNIT/ML 1 ML VIAL SUBCUT SCH ×3 (05:58→21:48)
[2020-05-04 06:38] LABS: VENOUS BLOOD BASE EXCESS 0.3 mmol/L; VENOUS BLOOD HCO3 26.8 mmol/L (20-32); VENOUS BLOOD PCO2 50.5 mmHg (35-63); VENOUS BLOOD PH 7.34 (7.30-7.42)
[2020-05-04 06:45] LABS: ABSOLUTE BASOPHILS # (AUTO) 0.1 10^3/uL (0.0-0.2); ABSOLUTE LYMPHOCYTES (AUTO) 1.8 10^3/uL (0.5-4.7); ABSOLUTE MONOCYTES (AUTO) 0.9 10^3/uL (0.1-1.4); ABSOLUTE NEUT (AUTO) 9.2 10^3/uL (1.7-8.2); BASOPHILS % (AUTO) 0.8 % (0-2); EOSINOPHILS % (AUTO) 0.1 % (0-6); HEMATOCRIT 40.8 % (36.0-47.0); HEMOGLOBIN 13.8 g/dL (12.0-15.5); LYMPHOCYTES % (AUTO) 15.3 % (13-45); MEAN CORPUSCULAR HEMOGLOBIN 30.1 pg (27.0-33.4); MEAN CORPUSCULAR HGB CONC 33.8 g/dL (32.0-36.0); MEAN CORPUSCULAR VOLUME 89 fl (80-97); MONOCYTES % (AUTO) 7.3 % (3-13); PLATELET COUNT 249 10^3/uL (150-450); RED BLOOD COUNT 4.59 10^6/uL (3.72-5.28); SEGMENTED NEUTROPHILS % (AUTO) 76.5 % (42-78); TOTAL CELLS COUNTED % (AUTO) 100 %
[2020-05-04 06:57] LABS: CHOLESTEROL 166.63 mg/dL (0-200); TRIGLYCERIDES 95 mg/dL (<150)
[2020-05-04 07:03] LABS: AMYLASE 83 U/L (30-110); ANION GAP 8 (5-19); BLOOD UREA NITROGEN 18 mg/dL (7-20); CARBON DIOXIDE 26 mmol/L (22-30); CHLORIDE 103 mmol/L (98-107); GLUCOSE 144 mg/dL (75-110); POTASSIUM 3.8 mmol/L (3.6-5.0)
[2020-05-04 07:07] LABS: DIRECT LDL 74 mg/dL (<100)
[2020-05-04] MEDS: MORPHINE SULFATE 10 MG/ML INJ IV PRN ×2 (09:11→18:19)
--- NOTE | 2020-05-04 11:51 | PDOC PROGRESS REPORT ---
Subjective Progress Note for:: 05/04/20 Subjective:: feels alittle better no flatus or stool Reason For Visit: ACUTE SMALL BOWEL OBSTRUCTION Physical Exam Vital Signs: Temp Pulse Resp BP Pulse Ox 98.5 F 80 16 141/65 H 99 05/04/20 08:05 05/04/20 08:05 05/04/20 08:05 05/04/20 08:05 05/04/20 08:05 Intake & Output 05/03/20 05/04/20 05/05/20 06:59 06:59 06:59 Intake Total 1000 Balance 1000 Weight 53.2 kg General appearance: PRESENT: no acute distress Head exam: PRESENT: normocephalic Eye exam: PRESENT: EOMI Ear exam: PRESENT: normal external ear exam Mouth exam: PRESENT: moist Neck exam: PRESENT: full ROM Respiratory exam: PRESENT: clear to auscultation anitha Cardiovascular exam: PRESENT: RRR Pulses: PRESENT: normal radial pulses, normal femoral pulses Vascular exam: PRESENT: normal capillary refill GI/Abdominal exam: PRESENT: hypoactive bowel sounds - ng in place, small tube, 14fr. not putting out anything, soft, other Rectal exam: PRESENT: deferred Extremities exam: PRESENT: full ROM Musculoskeletal exam: PRESENT: full ROM Neurological exam: PRESENT: alert, awake, oriented to person, oriented to place Psychiatric exam: PRESENT: appropriate affect Skin exam: PRESENT: dry Results Laboratory Results: 05/04/20 06:19 05/04/20 06:19 05/03/20 05/03/20 05/03/20 19:14 19:14 19:14 WBC 11.7 H RBC 5.18 Hgb 15.5 Hct 45.7 MCV 88 MCH 30.0 MCHC 34.0 RDW 14.0 Plt Count 264 Seg Neutrophils % 86.9 H VBG pH VBG pCO2 VBG HCO3 VBG Base Excess Sodium 137.8 Potassium 4.1 Chloride 99 Carbon Dioxide 30 Anion Gap 9 BUN 19 Creatinine 0.76 Est GFR ( Amer) > 60 Est GFR (Non-Af Amer) Glucose 181 H Lactic Acid 2.2 H Calcium 10.6 H Magnesium Total Bilirubin 0.9 AST 38 H Alkaline Phosphatase 70 Total Protein 7.8 Albumin 4.7 Triglycerides Cholesterol LDL Cholesterol Direct VLDL Cholesterol HDL Cholesterol Amylase Lipase 78.2 TSH Urine Color Urine Appearance Urine pH Ur Specific [place] Urine Protein Urine Glucose (UA) Urine Ketones Urine Blood Urine Nitrite Ur Leukocyte Esterase Urine WBC (Auto) Urine RBC (Auto) 05/03/20 05/03/20 05/04/20 19:14 22:26 02:30 WBC RBC Hgb Hct MCV MCH MCHC RDW Plt Count Seg Neutrophils % VBG pH VBG pCO2 VBG HCO3 VBG Base Excess Sodium Potassium Chloride Carbon Dioxide Anion Gap BUN Creatinine Est GFR ( Amer) Est GFR (Non-Af Amer) Glucose Lactic Acid 2.1 1.0 Calcium Magnesium Total Bilirubin AST Alkaline Phosphatase Total Protein Albumin Triglycerides Cholesterol LDL Cholesterol Direct VLDL Cholesterol HDL Cholesterol Amylase Lipase TSH Urine Color YELLOW Urine Appearance SLIGHTLY-CLOUDY Urine pH 6.0 Ur Specific [place] 1.026 Urine Protein NEGATIVE Urine Glucose (UA) NEGATIVE Urine Ketones TRACE H Urine Blood NEGATIVE Urine Nitrite NEGATIVE Ur Leukocyte Esterase NEGATIVE Urine WBC (Auto) 10 Urine RBC (Auto) 2 05/04/20 05/04/20 05/04/20 06:19 06:19 06:19 WBC 12.0 H RBC 4.59 Hgb 13.8 Hct 40.8 MCV 89 MCH 30.1 MCHC 33.8 RDW 14.0 Plt Count 249 Seg Neutrophils % 76.5 VBG pH VBG pCO2 VBG HCO3 VBG Base Excess Sodium 137.4 Cancelled Potassium 3.8 Cancelled Chloride 103 Cancelled Carbon Dioxide 26 Cancelled Anion Gap 8 Cancelled BUN 18 Cancelled Creatinine 0.69 Cancelled Est GFR ( Amer) > 60 Cancelled Est GFR (Non-Af Amer) Cancelled Glucose 144 H Cancelled Lactic Acid Calcium 10.0 Cancelled Magnesium 1.9 Total Bilirubin AST Alkaline Phosphatase Total Protein Albumin Triglycerides 95 Cholesterol 166.63 LDL Cholesterol Direct 74 VLDL Cholesterol 19.0 HDL Cholesterol 70 Amylase 83 Lipase 98.5 TSH Urine Color Urine Appearance Urine pH Ur Specific [place] Urine Protein Urine Glucose (UA) Urine Ketones Urine Blood Urine Nitrite Ur Leukocyte Esterase Urine WBC (Auto) Urine RBC (Auto) 05/04/20 05/04/20 05/04/20 06:19 06:19 06:19 WBC RBC Hgb Hct MCV MCH MCHC RDW Plt Count Seg Neutrophils % VBG pH 7.34 VBG pCO2 50.5 VBG HCO3 26.8 VBG Base Excess 0.3 Sodium Potassium Chloride Carbon Dioxide Anion Gap BUN Creatinine Est GFR ( Amer) Est GFR (Non-Af Amer) Glucose Lactic Acid 1.4 Calcium Magnesium Total Bilirubin AST Alkaline Phosphatase Total Protein Albumin Triglycerides Cholesterol LDL Cholesterol Direct VLDL Cholesterol HDL Cholesterol Amylase Lipase TSH 0.33 L Urine Color Urine Appearance Urine pH Ur Specific [place] Urine Protein Urine Glucose (UA) Urine Ketones Urine Blood Urine Nitrite Ur Leukocyte Esterase Urine WBC (Auto) Urine RBC (Auto) Impressions: Abdomen/Pelvis CT 05/03/20 18:56 IMPRESSION: Findings of moderate mid small bowel obstruction with transition point in the mid pelvis. Small amount of fluid layering in the pelvis. Assessment & Plan - Plan Summary Plan Summary: impression, sbo with transition pt in pelvis ng non fiunctional a 14fr tube is not appropiate for this pt. will have nursing replace tube may require surgery if she does not resolve ijn next 24-48hrs.
[2020-05-04] MEDS ORDERED: PHARMACY COMMUNICATION ORDER MC NR (12:15)
--- NOTE | 2020-05-04 14:02 | RADIOLOGY REPORT (SQ) ---
EXAM DESCRIPTION: KUB/ABDOMEN (SINGLE VIEW) IMAGES COMPLETED DATE/TIME: 05/04/2020 1:51 pm REASON FOR STUDY: Check Placement of NG Tube COMPARISON: 05/03/2020 NUMBER OF VIEWS: One view. TECHNIQUE: Supine radiographic image of the abdomen acquired. LIMITATIONS: Lower abdomen excluded by collimation. FINDINGS: BOWEL GAS PATTERN: Persistent dilated small bowel loops within the central abdomen measuri ng up to 3.7 cm. Scattered foci of gas noted throughout the colon. CALCIFICATIONS: No definitive radiopaque renal or gallbladder stones. Scattered punctate densities o verlie abdomen within the small bowel lumen and seen on prior CT, possibly retained bismuth (Pepto-Bi smol). SOFT TISSUES: No gross mass or suggestion of organomegaly. HARDWARE: Nasoenteric tube tip overlies gastric body. BONES: No acute fracture. No worrisome bone lesions. OTHER: No other significant finding. IMPRESSION: Nasoenteric tube tip overlies gastric body. Persistent dilated small bowel loops measuring up to 3.7 cm compatible small bowel obstruction. TECHNICAL DOCUMENTATION: JOB ID: [id number] 2010 [employer]- All Rights Reserved Reading location - IP/workstation name: [email or web address]
--- NOTE | 2020-05-04 17:03 | PDOC PROGRESS REPORT ---
Subjective Progress Note for:: 05/04/20 Subjective:: Patient reports that she is passing some gas. She admits that she is having less abdominal pain. A new nasogastric tube had to be placed and there is virtually no return. Reason For Visit: ACUTE SMALL BOWEL OBSTRUCTION Physical Exam Vital Signs: Temp Pulse Resp BP Pulse Ox 98.5 F 80 16 141/65 H 99 05/04/20 08:05 05/04/20 08:05 05/04/20 08:05 05/04/20 08:05 05/04/20 08:05 Intake & Output 05/03/20 05/04/20 05/05/20 06:59 06:59 06:59 Intake Total 1000 Balance 1000 Weight 53.2 kg General appearance: PRESENT: cooperative, mild distress, well-developed Ear exam: PRESENT: normal external ear exam. ABSENT: bleeding, drainage Mouth exam: PRESENT: moist, tongue midline Respiratory exam: PRESENT: clear to auscultation anitha, rales, rhonchi, unlabored. ABSENT: tachypnea, wheezes Cardiovascular exam: PRESENT: RRR, +S1, +S2 GI/Abdominal exam: PRESENT: diminished bowel sounds, soft, tenderness. ABSENT: distended Rectal exam: PRESENT: deferred Gentrourinary exam: ABSENT: indwelling catheter Extremities exam: ABSENT: pedal edema Musculoskeletal exam: PRESENT: ambulatory, normal inspection Neurological exam: PRESENT: alert, awake, oriented to person, oriented to place, oriented to time, oriented to situation, CN II-XII grossly intact. ABSENT: alte red Psychiatric exam: PRESENT: flat affect. ABSENT: agitated, anxious Focused psych exam: ABSENT: delusional, paranoid, restlessness Skin exam: PRESENT: dry, normal color, rash, warm Results Laboratory Results: 05/04/20 06:19 05/04/20 06:19 05/03/20 05/03/20 05/03/20 19:14 19:14 19:14 WBC 11.7 H RBC 5.18 Hgb 15.5 Hct 45.7 MCV 88 MCH 30.0 MCHC 34.0 RDW 14.0 Plt Count 264 Seg Neutrophils % 86.9 H VBG pH VBG pCO2 VBG HCO3 VBG Base Excess Sodium 137.8 Potassium 4.1 Chloride 99 Carbon Dioxide 30 Anion Gap 9 BUN 19 Creatinine 0.76 Est GFR ( Amer) > 60 Est GFR (Non-Af Amer) Glucose 181 H Lactic Acid 2.2 H Calcium 10.6 H Magnesium Total Bilirubin 0.9 AST 38 H Alkaline Phosphatase 70 Total Protein 7.8 Albumin 4.7 Triglycerides Cholesterol LDL Cholesterol Direct VLDL Cholesterol HDL Cholesterol Amylase Lipase 78.2 TSH Urine Color Urine Appearance Urine pH Ur Specific [place] Urine Protein Urine Glucose (UA) Urine Ketones Urine Blood Urine Nitrite Ur Leukocyte Esterase Urine WBC (Auto) Urine RBC (Auto) 05/03/20 05/03/20 05/04/20 19:14 22:26 02:30 WBC RBC Hgb Hct MCV MCH MCHC RDW Plt Count Seg Neutrophils % VBG pH VBG pCO2 VBG HCO3 VBG Base Excess Sodium Potassium Chloride Carbon Dioxide Anion Gap BUN Creatinine Est GFR ( Amer) Est GFR (Non-Af Amer) Glucose Lactic Acid 2.1 1.0 Calcium Magnesium Total Bilirubin AST Alkaline Phosphatase Total Protein Albumin Triglycerides Cholesterol LDL Cholesterol Direct VLDL Cholesterol HDL Cholesterol Amylase Lipase TSH Urine Color YELLOW Urine Appearance SLIGHTLY-CLOUDY Urine pH 6.0 Ur Specific [place] 1.026 Urine Protein NEGATIVE Urine Glucose (UA) NEGATIVE Urine Ketones TRACE H Urine Blood NEGATIVE Urine Nitrite NEGATIVE Ur Leukocyte Esterase NEGATIVE Urine WBC (Auto) 10 Urine RBC (Auto) 2 05/04/20 05/04/20 05/04/20 06:19 06:19 06:19 WBC 12.0 H RBC 4.59 Hgb 13.8 Hct 40.8 MCV 89 MCH 30.1 MCHC 33.8 RDW 14.0 Plt Count 249 Seg Neutrophils % 76.5 VBG pH VBG pCO2 VBG HCO3 VBG Base Excess Sodium 137.4 Cancelled Potassium 3.8 Cancelled Chloride 103 Cancelled Carbon Dioxide 26 Cancelled Anion Gap 8 Cancelled BUN 18 Cancelled Creatinine 0.69 Cancelled Est GFR ( Amer) > 60 Cancelled Est GFR (Non-Af Amer) Cancelled Glucose 144 H Cancelled Lactic Acid Calcium 10.0 Cancelled Magnesium 1.9 Total Bilirubin AST Alkaline Phosphatase Total Protein Albumin Triglycerides 95 Cholesterol 166.63 LDL Cholesterol Direct 74 VLDL Cholesterol 19.0 HDL Cholesterol 70 Amylase 83 Lipase 98.5 TSH Urine Color Urine Appearance Urine pH Ur Specific [place] Urine Protein Urine Glucose (UA) Urine Ketones Urine Blood Urine Nitrite Ur Leukocyte Esterase Urine WBC (Auto) Urine RBC (Auto) 05/04/20 05/04/20 05/04/20 06:19 06:19 06:19 WBC RBC Hgb Hct MCV MCH MCHC RDW Plt Count Seg Neutrophils % VBG pH 7.34 VBG pCO2 50.5 VBG HCO3 26.8 VBG Base Excess 0.3 Sodium Potassium Chloride Carbon Dioxide Anion Gap BUN Creatinine Est GFR ( Amer) Est GFR (Non-Af Amer) Glucose Lactic Acid 1.4 Calcium Magnesium Total Bilirubin AST Alkaline Phosphatase Total Protein Albumin Triglycerides Cholesterol LDL Cholesterol Direct VLDL Cholesterol HDL Cholesterol Amylase Lipase TSH 0.33 L Urine Color Urine Appearance Urine pH Ur Specific [place] Urine Protein Urine Glucose (UA) Urine Ketones Urine Blood Urine Nitrite Ur Leukocyte Esterase Urine WBC (Auto) Urine RBC (Auto) Impressions: Abdomen/Pelvis CT 05/03/20 18:56 IMPRESSION: Findings of moderate mid small bowel obstruction with transition point in the mid pelvis. Small amount of fluid layering in the pelvis. KUB X-Ray 05/04/20 12:08 IMPRESSION: Nasoenteric tube tip overlies gastric body. Persistent dilated small bowel loops measuring up to 3.7 cm compatible small bowel obstruction. Assessment and Plan - Diagnosis (1) Small bowel obstruction Is this a current diagnosis for this admission?: Yes Plan: 05/04/2020 Patient is n.p.o. Has nasogastric tube in place. Surgery is consulted. She reports that she is starting to pass some gas. No stools yet. (2) Hyperglycemia due to type 2 diabetes mellitus Qualifiers: Diabetes mellitus detention insulin use: without exterminator helper use Qualified Code(s): E11.65 - Type 2 diabetes mellitus with hyperglycemia Is this a current diagnosis for this admission?: Yes Plan: 05/04/2020 Currently n.p.o. Accu-Cheks and hypoglycemic protocol. Will eventually resume metformin. (3) Hypercholesterolemia Is this a current diagnosis for this admission?: Yes Plan: 05/04/2020 We will resume statin therapy when patient begins eating and drinking. (4) Hypertension Qualifiers: Hypertension type: essential hypertension Qualified Code(s): I10 - Essential (primary) hypertension Is this a current diagnosis for this admission?: Yes Plan: 05/04/2020 Continue current regimen. Reasonable blood pressure control (5) Leukocytosis Qualifiers: Leukocytosis type: unspecified Qualified Code(s): D72.829 - Elevated white blood cell count, unspecified Is this a current diagnosis for this admission?: Yes Plan: 05/04/2020 Physiologic reaction to the bowel obstruction. Continue to monitor. - Plan Summary Summary: Patient will be admitted to the medical floor where she will receive routine supportive and symptomatic cares. Dr. Dominguez will be consulted for surgical evaluation and treatment. She will be given IV fluids utilizing normal saline at 175 mL/h initially. She will receive morphine sulfate 2 to 4 mg IV every 2 hours as needed for pain. She will use Ativan 1 mg IV every 4 hours as needed for anxiety or restlessness. An NG tube has been placed per Dr. Dominguez's orders. CBCs, metabolic profiles, magnesium levels and additional laboratory and/or radiographic evaluations will be obtained as needed. Every 6 hours Accu- Cheks will be performed with sliding scale insulin for hyperglycemia and a hypoglycemic protocol in place. IV metoprolol and/or hydralazine will be used to control blood pressures greater than 160/100 while the patient is unable to take oral medications. She will be n.p.o. - Time Time Spent with patient: 15-24 minutes Medications reviewed and adjusted accordingly: Yes Anticipated discharge: Home
[2020-05-05] MEDS: NORMAL SALINE 1000 ML 1,000 ML IV PRN ×3 (00:14→18:22)
[2020-05-05 05:46] LABS: HEMATOCRIT 41.5 % (36.0-47.0); HEMOGLOBIN 13.9 g/dL (12.0-15.5); MEAN CORPUSCULAR HGB CONC 33.5 g/dL (32.0-36.0); MEAN CORPUSCULAR VOLUME 90 fl (80-97); PLATELET COUNT 181 10^3/uL (150-450); RED BLOOD COUNT 4.62 10^6/uL (3.72-5.28); RED CELL DISTRIBUTION WIDTH 13.8 % (11.5-14.0); WHITE BLOOD COUNT 7.9 10^3/uL (4.0-10.5)
[2020-05-05] MEDS: HEPARIN SOD (PORCINE) 5,000 UNIT/ML 1 ML VIAL SUBCUT SCH ×3 (05:57→22:23)
[2020-05-05 06:13] LABS: ANION GAP 8 (5-19); BLOOD UREA NITROGEN 19 mg/dL (7-20); CARBON DIOXIDE 25 mmol/L (22-30); CHLORIDE 106 mmol/L (98-107); GLUCOSE 125 mg/dL (75-110); POTASSIUM 3.5 mmol/L (3.6-5.0)
[2020-05-05] MEDS: INSULIN REG, HUMAN 100 UNIT/ML 3 ML VIAL (PYX) SUBCUT SCH ×4 (06:44→18:57)
[2020-05-05] MEDS: PANTOPRAZOLE SODIUM 40 MG VIAL IV SCH (09:01)
--- NOTE | 2020-05-05 10:46 | RADIOLOGY REPORT (SQ) ---
EXAM DESCRIPTION: ABDOMEN 2 VIEWS IMAGES COMPLETED DATE/TIME: 05/05/2020 9:04 am REASON FOR STUDY: sbo COMPARISON: Abdominal radiographs performed 05/02/[address] abdomen and pelvis performed 05/03/2020 NUMBER OF VIEWS: Two views. TECHNIQUE: Supine and erect/decubitus radiographic images of the abdomen acquired. LIMITATIONS: None. FINDINGS: FREE AIR: None. No abnormal gas collections. LUNG BASES: Clear. BOWEL GAS PATTERN: Persistent appearance of multiple loops of gas distended small bowel. Gas and sto ol are seen throughout the colon to the level of the rectum. CALCIFICATIONS: No suspicious calcifications. SOFT TISSUES: No gross mass or suggestion of organomegaly. HARDWARE: Enteric tube terminates subdiaphragmatically with the proximal port in the region of the ga stroesophageal junction. BONES: No acute fracture. No worrisome bone lesions. OTHER: No other significant finding. IMPRESSION: Stable, persistent appearance of partial small bowel obstruction noting gas and stool se en to the level of the rectum. Enteric tube proximal port terminates in the region of the gastroesophageal junction, consider advanc ing 5 to 7 cm. TECHNICAL DOCUMENTATION: JOB ID: [id number] [employer]- All Rights Reserved Reading location - IP/workstation name: [email or web address]
--- NOTE | 2020-05-05 10:48 | PDOC PROGRESS REPORT ---
Subjective Progress Note for:: 05/05/20 Subjective:: Feels better today. Denies any abdominal pain. Has been passing small amount of gas. Denies any abdominal distention today. Reason For Visit: ACUTE SMALL BOWEL OBSTRUCTION Physical Exam Vital Signs: Temp Pulse Resp BP Pulse Ox 97.7 F 76 18 146/67 H 99 05/05/20 08:10 05/05/20 08:10 05/05/20 08:10 05/05/20 08:10 05/05/20 08:10 Intake & Output 05/04/20 05/05/20 05/06/20 06:59 06:59 06:59 Intake Total 1000 3000 Balance 1000 3000 Weight 53.2 kg 53.2 kg General appearance: PRESENT: no acute distress, cooperative Respiratory exam: PRESENT: clear to auscultation anitha Cardiovascular exam: PRESENT: RRR GI/Abdominal exam: PRESENT: other - Soft, mildly distended, nontender to palpation, normal active bowel sounds. Results Laboratory Results: 05/05/20 05:07 05/05/20 05:07 05/05/20 05/05/20 05:07 05:07 WBC 7.9 RBC 4.62 Hgb 13.9 Hct 41.5 MCV 90 MCH 30.0 MCHC 33.5 RDW 13.8 Plt Count 181 Sodium 138.5 Potassium 3.5 L Chloride 106 Carbon Dioxide 25 Anion Gap 8 BUN 19 Creatinine 0.70 Est GFR ( Amer) > 60 Glucose 125 H Calcium 9.0 Magnesium 2.0 Impressions: Abdomen/Pelvis CT 05/03/20 18:56 IMPRESSION: Findings of moderate mid small bowel obstruction with transition point in the mid pelvis. Small amount of fluid layering in the pelvis. KUB X-Ray 05/04/20 12:08 IMPRESSION: Nasoenteric tube tip overlies gastric body. Persistent dilated small bowel loops measuring up to 3.7 cm compatible small bowel obstruction. Assessment & Plan - Diagnosis (1) Partial small bowel obstruction Is this a current diagnosis for this admission?: Yes Plan: Clinically she appears better but x-rays are still very concerning for small bowel obstruction. With her symptomatic improvement, reluctant to push her towards an operation. I have discussed with the patient the options of proceeding with surgery versus continued observation. I have discussed the risk and benefits of both including risk of intestines being compromised during the observation. And the risk of surgery with risk of recurrent adhesions, int estinal injury, bleeding, infection. Patient prefers continuation of conservative management for now. Will give her a fleets enema today. Will encourage ambulation.
[2020-05-05] MEDS: POTASSI CL 20 MEQ/50 ML RIDER 20 MEQ/50 ML RTUPB IV SCH ×2 (11:32→13:29)
--- NOTE | 2020-05-05 17:55 | PDOC PROGRESS REPORT ---
Subjective Progress Note for:: 05/05/20 Subjective:: Patient was seen by Dr. Goetz earlier today. He repeated an x-ray. He would like to see more: Prior to starting any clear liquids. His plan was to have an enema administered. Patient reports that she has not received the enema yet. Reason For Visit: ACUTE SMALL BOWEL OBSTRUCTION Physical Exam Vital Signs: Temp Pulse Resp BP Pulse Ox 99.2 F 89 20 136/61 H 100 05/05/20 16:25 05/05/20 16:25 05/05/20 16:25 05/05/20 16:25 05/05/20 16:25 Intake & Output 05/04/20 05/05/20 05/06/20 06:59 06:59 06:59 Intake Total 1000 3000 1049 Balance 1000 3000 1049 Weight 53.2 kg 53.2 kg General appearance: PRESENT: no acute distress, cooperative, other - NG tube in place Head exam: PRESENT: atraumatic, normocephalic Ear exam: PRESENT: normal external ear exam. ABSENT: bleeding, drainage Mouth exam: PRESENT: moist, tongue midline Neck exam: ABSENT: tracheostomy Respiratory exam: PRESENT: clear to auscultation anihta, symmetrical, unlabored. ABSENT: rales, rhonchi, tachypnea, wheezes Cardiovascular exam: PRESENT: RRR, +S1, +S2. ABSENT: diastolic murmur, irregular rhythm, systolic murmur GI/Abdominal exam: PRESENT: normal bowel sounds, soft. ABSENT: distended, guarding, tenderness Rectal exam: PRESENT: deferred Extremities exam: ABSENT: pedal edema Musculoskeletal exam: PRESENT: ambulatory, normal inspection Neurological exam: PRESENT: alert, awake, oriented to person, oriented to place, oriented to time, oriented to situation, CN II-XII grossly intact. ABSENT: altered Psychiatric exam: PRESENT: flat affect. ABSENT: agitated, anxious Focused psych exam: ABSENT: delusional, paranoid, restlessness Skin exam: PRESENT: dry, normal color, warm. ABSENT: rash Results Laboratory Results: 05/05/20 05:07 05/05/20 05:07 05/05/20 05/05/20 05:07 05:07 WBC 7.9 RBC 4.62 Hgb 13.9 Hct 41.5 MCV 90 MCH 30.0 MCHC 33.5 RDW 13.8 Plt Count 181 Sodium 138.5 Potassium 3.5 L Chloride 106 Carbon Dioxide 25 Anion Gap 8 BUN 19 Creatinine 0.70 Est GFR ( Amer) > 60 Glucose 125 H Calcium 9.0 Magnesium 2.0 Impressions: Abdomen/Pelvis CT 05/03/20 18:56 IMPRESSION: Findings of moderate mid small bowel obstruction with transition point in the mid pelvis. Small amount of fluid layering in the pelvis. KUB X-Ray 05/04/20 12:08 IMPRESSION: Nasoenteric tube tip overlies gastric body. Persistent dilated small bowel loops measuring up to 3.7 cm compatible small bowel obstruction. Abdomen X-Ray 05/05/20 00:00 IMPRESSION: Stable, persistent appearance of partial small bowel obstruction noting gas and stool seen to the level of the rectum. Enteric tube proximal port terminates in the region of the gastroesophageal junction, consider advancing 5 to 7 cm. Assessment and Plan - Diagnosis (1) Small bowel obstruction Is this a current diagnosis for this admission?: Yes Plan: 05/04/2020 Patient is n.p.o. Has nasogastric tube in place. Surgery is consulted. She reports that she is starting to pass some gas. No stools yet. 05/05/2020 Repeat x-rays taken today. Dr. Goetz requested a Fleet enema. I resubmitted the order. The patient will be getting Fleet Enema this afternoon. There will likely be another abdominal x-ray will follow as well I believe Dr. Goetz will allow initiation of clear liquids with diet to advance slowly (2) Hyperglycemia due to type 2 diabetes mellitus Qualifiers: Diabetes mellitus [facility] insulin use: without ferry terminal agent use Qualified Code(s): E11.65 - Type 2 diabetes mellitus with hyperglycemia Is this a current diagnosis for this admission?: Yes Plan: 05/04/2020 Currently n.p.o. Accu-Cheks and hypoglycemic protocol. Will eventually resume metformin. 05/05/2020 No changes at this time. We will resume initial medications once she is on a regular diet. (3) Hypercholesterolemia Is this a current diagnosis for this admission?: Yes Plan: 05/04/2020 We will resume statin therapy when patient begins eating and drinking. (4) Hypertension Qualifiers: Hypertension type: essential hypertension Qualified Code(s): I10 - Essential (primary) hypertension Is this a current diagnosis for this admission?: Yes Plan: 05/04/2020 Continue current regimen. Reasonable blood pressure control 05/05/2020- Remains with good blood pressure control. No changes at this time. (5) Leukocytosis Qualifiers: Leukocytosis type: unspecified Qualified Code(s): D72.829 - Elevated white blood cell count, unspecified Is this a current diagnosis for this admission?: Yes Plan: 05/04/2020 Physiologic reaction to the bowel obstruction. Continue to monitor. 05/05/2020 White blood cell count is now normal. - Plan Summary Summary: Patient will be admitted to the medical floor where she will receive routine supportive and symptomatic cares. Dr. Dominguez will be consulted for surgical evaluation and treatment. She will be given IV fluids utilizing normal saline at 175 mL/h initially. She will receive morphine sulfate 2 to 4 mg IV every 2 hours as needed for pain. She will use Ativan 1 mg IV every 4 hours as needed for anxiety or restlessness. An NG tube has been placed per Dr. Dominguez's orders. CBCs, metabolic profiles, magnesium levels and additional laboratory and/or radiographic evaluations will be obtained as needed. Every 6 hours Accu- Cheks will be performed with sliding scale insulin for hyperglycemia and a hypoglycemic protocol in place. IV metoprolol and/or hydralazine will be used to control blood pressures greater than 160/100 while the patient is unable to take oral medications. She will be n.p.o. - Time Time Spent with patient: 15-24 minutes Medications reviewed and adjusted accordingly: Yes Anticipated discharge: Home with Homehealth
[2020-05-05] MEDS ORDERED: NA PHOS,M-B/NA PHOS,DI-BA (ADULT) 133 ML ENEMA PR ONE (19:00)
[2020-05-05] MEDS ORDERED: POTASSI CL 20 MEQ/50 ML RIDER 20 MEQ/50 ML RTUPB IV ONE (19:00)
[2020-05-05] MEDS: PROMETHAZINE HCL INJ 25 MG/1 ML VIAL IV PRN (21:00)
[2020-05-06] MEDS: PANTOPRAZOLE SODIUM 40 MG VIAL IV SCH ×3 (00:22→21:22)
[2020-05-06] MEDS: INSULIN REG, HUMAN 100 UNIT/ML 3 ML VIAL (PYX) SUBCUT SCH ×4 (00:54→17:07)
--- NOTE | 2020-05-06 01:31 | RADIOLOGY REPORT (SQ) ---
CLINICAL HISTORY: Check Placement of NG Tube COMPARISON: 05/05/2020. TECHNIQUE: XR ABDOMEN 1 VIEW (KUB) 05/05/2020 10:50 PM CDT FINDINGS: There are multiple dilated small bowel loops throughout the abdomen. There are no abnormal radiopaque foreign bodies or abnormal calcifications. Osseous structures are grossly unremarkable. NG tube tip is in the upper stomach. IMPRESSION: NG tube tip in the upper stomach.
[2020-05-06 05:46] LABS: ABSOLUTE LYMPHOCYTES (AUTO) 1.3 10^3/uL (0.5-4.7); ABSOLUTE MONOCYTES (AUTO) 0.9 10^3/uL (0.1-1.4); ABSOLUTE NEUT (AUTO) 6.1 10^3/uL (1.7-8.2); BASOPHILS % (AUTO) 0.3 % (0-2); HEMATOCRIT 35.9 % (36.0-47.0); HEMOGLOBIN 12.3 g/dL (12.0-15.5); LYMPHOCYTES % (AUTO) 15.1 % (13-45); MEAN CORPUSCULAR HEMOGLOBIN 30.4 pg (27.0-33.4); MEAN CORPUSCULAR HGB CONC 34.2 g/dL (32.0-36.0); MEAN CORPUSCULAR VOLUME 89 fl (80-97); MONOCYTES % (AUTO) 11.4 % (3-13); PLATELET COUNT 168 10^3/uL (150-450); RED BLOOD COUNT 4.05 10^6/uL (3.72-5.28); RED CELL DISTRIBUTION WIDTH 13.7 % (11.5-14.0); SEGMENTED NEUTROPHILS % (AUTO) 73.2 % (42-78); TOTAL CELLS COUNTED % (AUTO) 100 %; WHITE BLOOD COUNT 8.3 10^3/uL (4.0-10.5)
[2020-05-06] MEDS: HEPARIN SOD (PORCINE) 5,000 UNIT/ML 1 ML VIAL SUBCUT SCH ×3 (06:04→21:23)
[2020-05-06 06:06] LABS: ANION GAP 9 (5-19); BLOOD UREA NITROGEN 12 mg/dL (7-20); CALCIUM 8.7 mg/dL (8.4-10.2); CARBON DIOXIDE 23 mmol/L (22-30); CHLORIDE 105 mmol/L (98-107); GLUCOSE 116 mg/dL (75-110); POTASSIUM 3.1 mmol/L (3.6-5.0)
[2020-05-06] MEDS: PROMETHAZINE HCL INJ 25 MG/1 ML VIAL IV PRN (06:06)
[2020-05-06] MEDS: NORMAL SALINE 1000 ML 1,000 ML IV PRN ×3 (08:19→21:21)
--- NOTE | 2020-05-06 09:01 | PDOC PROGRESS REPORT ---
Subjective Subjective:: Patient states she had a bowel movement and flatus. The gastric tube came out last night and got reinserted, minimal drainage since Reason For Visit: ACUTE SMALL BOWEL OBSTRUCTION Physical Exam Vital Signs: Temp Pulse Resp BP Pulse Ox 98.7 F 84 20 136/68 H 95 05/06/20 01:00 05/06/20 01:00 05/06/20 01:00 05/06/20 01:00 05/06/20 01:00 Intake & Output 05/05/20 05/06/20 05/07/20 06:59 06:59 06:59 Intake Total 3000 2099 Output Total 150 Balance 3000 1949 Weight 53.2 kg 53.2 kg General appearance: PRESENT: no acute distress GI/Abdominal exam: PRESENT: other - Abdomen appears less distended but still mildly tympanitic Results Laboratory Results: 05/06/20 05:19 05/06/20 05:19 05/06/20 05/06/20 05:19 05:19 WBC 8.3 RBC 4.05 Hgb 12.3 Hct 35.9 L MCV 89 MCH 30.4 MCHC 34.2 RDW 13.7 Plt Count 168 Seg Neutrophils % 73.2 Sodium 136.9 L Potassium 3.1 L Chloride 105 Carbon Dioxide 23 Anion Gap 9 BUN 12 Creatinine 0.62 Est GFR ( Amer) > 60 Glucose 116 H Calcium 8.7 Magnesium 2.1 Impressions: Abdomen/Pelvis CT 05/03/20 18:56 IMPRESSION: Findings of moderate mid small bowel obstruction with transition point in the mid pelvis. Small amount of fluid layering in the pelvis. KUB X-Ray 05/05/20 22:50 IMPRESSION: NG tube tip in the upper stomach. Assessment & Plan - Diagnosis (1) Small bowel obstruction Is this a current diagnosis for this admission?: Yes Plan: Impression: Review of x-ray this morning shows a significant amount of gas in the colon, with multiple dilated small bowel loops; confusing picture however does not have an acute abdomen. Recommendation: 1. We will obtain a contrast study through nasogastric tube to rule out mechanical obstruction. 2. Discussed above with nursing services and radiologist, Dr. Santiago. (2) Hypertension Qualifiers: Hypertension type: essential hypertension Qualified Code(s): I10 - Essential (primary) hypertension Is this a current diagnosis for this admission?: Yes (3) Diabetes mellitus Is this a current diagnosis for this admission?: Yes (4) Hypercholesterolemia Is this a current diagnosis for this admission?: Yes
--- NOTE | 2020-05-06 09:40 | RADIOLOGY REPORT (SQ) ---
EXAM DESCRIPTION: ABDOMEN 2 VIEWS IMAGES COMPLETED DATE/TIME: 05/06/2020 7:58 am REASON FOR STUDY: f/u sbo COMPARISON: AP view of the abdomen from 05/06/2020. NUMBER OF VIEWS: Two views. TECHNIQUE: Supine and erect/decubitus radiographic images of the abdomen acquired. LIMITATIONS: None. FINDINGS: FREE AIR: None. LUNG BASES: Clear. BOWEL GAS PATTERN: Persistent and unchanged dilatation of the small bowel (it measures 3.7 cm in diam eter). There is gas within the ascending colon and splenic flexure. CALCIFICATIONS: None. SOFT TISSUES: No abnormality. HARDWARE: The enteric tube is no longer visible. BONES: No acute findings. OTHER: No other finding. IMPRESSION: Persistent unchanged dilatation of the small bowel. The enteric tube is no longer visib le. TECHNICAL DOCUMENTATION: JOB ID: [id number] 2010 [employer]- All Rights Reserved Reading location - IP/workstation name: [email or web address]
--- NOTE | 2020-05-06 14:46 | RADIOLOGY REPORT (SQ) ---
EXAM DESCRIPTION: SMALL BOWEL SERIES IMAGES COMPLETED DATE/TIME: 05/06/2020 2:06 pm REASON FOR STUDY: Small bowel distention COMPARISON: CT abdomen pelvis 05/03/2020 FLUOROSCOPY TIME: No fluoroscopy was utilized. Overhead and portable images saved to PACS. LIMITATIONS: None. PROCEDURE: Initial pinion polisher image of abdomen acquired, followed by administration of Gastrografin. Ser ial radiographic images acquired. All images stored on PACS. FINDINGS: SURGICAL GARMENT INSPECTOR KUB: Moderate air-filled distended loops of small bowel throughout the abdomen. Gas -filled loops of colon can be identified. NG tube is seen with the tip within the fundus of the stom ach. STOMACH: No significant reflux. Normal distention without abnormality. DUODENUM: Normal mucosal pattern with adequate distention. No displacement or obstruction. JEJUNUM: Moderate distention of the jejunum without evidence of obstruction. ILEUM: Moderate distention of the ileum without evidence of obstruction. TERMINAL ILEUM AND ILEO-CECAL VALVE: No evidence of distal small-bowel obstruction. Contrast flows e asily into the cecum. PROXIMAL COLON: Contrast filling of the colon to the level of the distal descending colon on the 3 ho ur film. No evidence of obstruction. OTHER: No other significant finding. IMPRESSION: NO EVIDENCE OF SMALL BOWEL OR PROXIMAL COLONIC OBSTRUCTION. COMMENT: Quality ID [id number]: Final reports for procedures using fluoroscopy that document radiation exp osure indices, or exposure time and number of fluorographic images (if radiation exposure indices are not available) TECHNICAL DOCUMENTATION: JOB ID: [id number] 2010 [email or web address]- All Rights Reserved Reading location - IP/workstation name: [email or web address] [id number]
[2020-05-06] MEDS: POTASSI CL 20 MEQ/50 ML RIDER 20 MEQ/50 ML RTUPB IV SCH ×2 (14:56→16:39)
--- NOTE | 2020-05-06 15:28 | PDOC PROGRESS REPORT ---
Subjective Progress Note for:: 05/06/20 Subjective:: Nasogastric tube is out. Patient reports passing some stool and gas. She is taking ice chips. Her throat is still sore from the nasogastric tube. Reason For Visit: ACUTE SMALL BOWEL OBSTRUCTION Physical Exam Vital Signs: Temp Pulse Resp BP Pulse Ox 98.5 F 82 16 156/70 H 93 05/06/20 12:00 05/06/20 12:00 05/06/20 12:00 05/06/20 12:00 05/06/20 12:00 Intake & Output 05/05/20 05/06/20 05/07/20 06:59 06:59 06:59 Intake Total 3000 2099 Output Total 150 Balance 3000 1949 Weight 53.2 kg 53.2 kg General appearance: PRESENT: no acute distress, cooperative, well-developed Head exam: PRESENT: atraumatic, normocephalic Eye exam: PRESENT: conjunctiva pink. ABSENT: scleral icterus Ear exam: PRESENT: normal external ear exam. ABSENT: bleeding, drainage Mouth exam: PRESENT: moist, tongue midline Respiratory exam: PRESENT: clear to auscultation anitha, symmetrical, unlabored. ABSENT: rales, rhonchi, tachypnea, wheezes Cardiovascular exam: PRESENT: RRR, +S1, +S2. ABSENT: diastolic murmur, irregular rhythm, systolic murmur GI/Abdominal exam: PRESENT: normal bowel sounds, soft. ABSENT: distended, tenderness Rectal exam: PRESENT: deferred Extremities exam: ABSENT: pedal edema Musculoskeletal exam: PRESENT: ambulatory, normal inspection Neurological exam: PRESENT: alert, awake, oriented to person, oriented to place, oriented to time, oriented to situation, CN II-XII grossly intact. ABSENT: altered, motor sensory deficit Psychiatric exam: PRESENT: flat affect. ABSENT: agitated, anxious Focused psych exam: ABSENT: delusional, paranoid, restlessness Skin exam: PRESENT: dry, normal color, warm. ABSENT: rash Results Laboratory Results: 05/06/20 05:19 05/06/20 05:19 05/06/20 05/06/20 05:19 05:19 WBC 8.3 RBC 4.05 Hgb 12.3 Hct 35.9 L MCV 89 MCH 30.4 MCHC 34.2 RDW 13.7 Plt Count 168 Seg Neutrophils % 73.2 Sodium 136.9 L Potassium 3.1 L Chloride 105 Carbon Dioxide 23 Anion Gap 9 BUN 12 Creatinine 0.62 Est GFR ( Amer) > 60 Glucose 116 H Calcium 8.7 Magnesium 2.1 Impressions: Abdomen/Pelvis CT 05/03/20 18:56 IMPRESSION: Findings of moderate mid small bowel obstruction with transition point in the mid pelvis. Small amount of fluid layering in the pelvis. KUB X-Ray 05/05/20 22:50 IMPRESSION: NG tube tip in the upper stomach. Abdomen X-Ray 05/06/20 06:30 IMPRESSION: Persistent unchanged dilatation of the small bowel. The enteric tube is no longer visible. Small Bowel X-Ray 05/06/20 08:59 IMPRESSION: NO EVIDENCE OF SMALL BOWEL OR PROXIMAL COLONIC OBSTRUCTION. Assessment and Plan - Diagnosis (1) Small bowel obstruction Is this a current diagnosis for this admission?: Yes Plan: Spoke with Dr. Dominguez. Upper GI series showed contrast in the colon. He will discontinue the nasogastric tube. Currently with ice chips. Likely to discha rge after she tolerates a regular diet. (2) Hyperglycemia due to type 2 diabetes mellitus Qualifiers: Diabetes mellitus director long term care insulin use: without skilled nursing use Qualified Code(s): E11.65 - Type 2 diabetes mellitus with hyperglycemia Is this a current diagnosis for this admission?: Yes Plan: Currently with excellent glucose control. We will continue to monitor as diet advances. (3) Hypercholesterolemia Is this a current diagnosis for this admission?: Yes Plan: Resume statin therapy when taking p.o. (4) Hypertension Qualifiers: Hypertension type: essential hypertension Qualified Code(s): I10 - Essential (primary) hypertension Is this a current diagnosis for this admission?: Yes Plan: Blood pressure still fluctuates. Probably related to some changes with her pain levels. When she is on oral diet will resume her baseline antihypertensive medications. (5) Leukocytosis Qualifiers: Leukocytosis type: unspecified Qualified Code(s): D72.829 - Elevated white blood cell count, unspecified Is this a current diagnosis for this admission?: Yes Plan: White blood cell count is now normal (6) Hypokalemia Is this a current diagnosis for this admission?: Yes Plan: Supplement by IV. Will likely self correct when on oral diet. - Plan Summary Summary: Patient will be admitted to the medical floor where she will receive routine mazariegos pportive and symptomatic cares. Dr. Dominguez will be consulted for surgical evaluation and treatment. She will be given IV fluids utilizing normal saline at 175 mL/h initially. She will receive morphine sulfate 2 to 4 mg IV every 2 hours as needed for pain. She will use Ativan 1 mg IV every 4 hours as needed for anxiety or restlessness. An NG tube has been placed per Dr. Dominguez's orders. CBCs, metabolic profiles, magnesium levels and additional laboratory and/or radiographic evaluations will be obtained as needed. Every 6 hours Accu- Cheks will be performed with sliding scale insulin for hyperglycemia and a hypoglycemic protocol in place. IV metoprolol and/or hydralazine will be used to control blood pressures greater than 160/100 while the patient is unable to take oral medications. She will be n.p.o. - Time Time Spent with patient: 15-24 minutes Medications reviewed and adjusted accordingly: Yes Anticipated discharge: Home Within: within 48 hours
[2020-05-06] MEDS: PHENOL/SODIUM PHENOLATE 100 SPRAY/177 ML BOTTLE PO PRN (19:52)
[2020-05-07] MEDS: INSULIN REG, HUMAN 100 UNIT/ML 3 ML VIAL (PYX) SUBCUT SCH ×4 (00:44→17:38)
[2020-05-07] MEDS: NORMAL SALINE 1000 ML 1,000 ML IV PRN ×2 (05:48→15:22)
[2020-05-07] MEDS: HEPARIN SOD (PORCINE) 5,000 UNIT/ML 1 ML VIAL SUBCUT SCH ×3 (05:49→21:42)
[2020-05-07] MEDS: PANTOPRAZOLE SODIUM 40 MG VIAL IV SCH ×2 (09:11→21:42)
[2020-05-07] MEDS: PHENOL/SODIUM PHENOLATE 100 SPRAY/177 ML BOTTLE PO PRN (09:13)
--- NOTE | 2020-05-07 11:11 | PDOC PROGRESS REPORT ---
Subjective Progress Note for:: 05/07/20 Subjective:: Patient was up walking in the [place] earlier. She did well with clear liquids. Other than being bored she has no other complaints Reason For Visit: ACUTE SMALL BOWEL OBSTRUCTION Physical Exam Vital Signs: Temp Pulse Resp BP Pulse Ox 98.4 F 75 17 127/58 H 100 05/07/20 07:41 05/07/20 07:41 05/07/20 07:41 05/07/20 07:41 05/07/20 07:41 Intake & Output 05/06/20 05/07/20 05/08/20 06:59 06:59 06:59 Intake Total 2099 2873 Output Total 150 Balance 1949 2873 Weight 53.2 kg General appearance: PRESENT: no acute distress, cooperative, well-developed Head exam: PRESENT: atraumatic, normocephalic Eye exam: PRESENT: conjunctiva pink, EOMI. ABSENT: scleral icterus Ear exam: PRESENT: normal external ear exam. ABSENT: bleeding, drainage Respiratory exam: PRESENT: clear to auscultation anitha, symmetrical, unlabored. ABSENT: prolonged expiratory phas, rales, rhonchi, tachypnea, wheezes Cardiovascular exam: PRESENT: RRR, +S1, +S2, systolic murmur - 1/6. ABSENT: diastolic murmur, irregular rhythm GI/Abdominal exam: PRESENT: normal bowel sounds, soft. ABSENT: distended, tenderness Rectal exam: PRESENT: deferred Gentrourinary exam: ABSENT: indwelling catheter Extremities exam: PRESENT: full ROM. ABSENT: pedal edema Musculoskeletal exam: PRESENT: ambulatory, normal inspection. ABSENT: deformity, dislocation Neurological exam: PRESENT: alert, awake, oriented to person, oriented to place, oriented to time, oriented to situation, CN II-XII grossly intact. ABSENT: altered, motor sensory deficit Psychiatric exam: PRESENT: flat affect. ABSENT: agitated, anxious Focused psych exam: ABSENT: delusional, paranoid, restlessness Skin exam: PRESENT: dry, warm. ABSENT: rash Results Laboratory Results: 05/06/20 05:19 05/06/20 05:19 Impressions: Abdomen/Pelvis CT 05/03/20 18:56 IMPRESSION: Findings of moderate mid small bowel obstruction with transition point in the mid pelvis. Small amount of fluid layering in the pelvis. KUB X-Ray 05/05/20 22:50 IMPRESSION: NG tube tip in the upper stomach. Abdomen X-Ray 05/06/20 06:30 IMPRESSION: Persistent unchanged dilatation of the small bowel. The enteric tube is no longer visible. Small Bowel X-Ray 05/06/20 08:59 IMPRESSION: NO EVIDENCE OF SMALL BOWEL OR PROXIMAL COLONIC OBSTRUCTION. Assessment and Plan - Diagnosis (1) Small bowel obstruction Is this a current diagnosis for this admission?: Yes Plan: Patient tolerated clear liquids. 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 Patient exhibits very good glucose control. As diet advances we may need to make adjustments. (3) Hypercholesterolemia Is this a current diagnosis for this admission?: Yes Plan: Resume statin therapy as diet advances (4) Hypertension Qualifiers: Hypertension type: essential hypertension Qualified Code(s): I10 - Essential (primary) hypertension Is this a current diagnosis for this admission?: Yes Plan: No changes at this time. Patient exhibits reasonable blood pressure control. (5) Leukocytosis Qualifiers: Leukocytosis type: unspecified Qualified Code(s): D72.829 - Elevated white blood cell count, unspecified Is this a current diagnosis for this admission?: Yes Plan: White blood cell count is now normal (6) Hypokalemia Is this a current diagnosis for this admission?: Yes Plan: Laboratory studies ordered for tomorrow. Patient did receive potassium chloride supplement for this (40 mEq by IV yesterday). - Plan Summary Summary: Patient will be admitted to the medical floor where she will receive routine supportive and symptomatic cares. Dr. Dominguez will be consulted for surgical evaluation and treatment. She will be given IV fluids utilizing normal saline at 175 mL/h initially. She will receive morphine sulfate 2 to 4 mg IV every 2 hours as needed for pain. She will use Ativan 1 mg IV every 4 hours as needed for anxiety or restlessness. An NG tube has been placed per Dr. Dominguez's or ders. CBCs, metabolic profiles, magnesium levels and additional laboratory and/or radiographic evaluations will be obtained as needed. Every 6 hours Accu- Cheks will be performed with sliding scale insulin for hyperglycemia and a hypoglycemic protocol in place. IV metoprolol and/or hydralazine will be used to control blood pressures greater than 160/100 while the patient is unable to take oral medications. She will be n.p.o. - Time Time Spent with patient: 15-24 minutes Medications reviewed and adjusted accordingly: Yes Anticipated discharge: Home Within: within 48 hours
[2020-05-07] MEDS: POTASSIUM CHLORIDE 10 MEQ TABLET.ER PO SCH (15:20)
[2020-05-07] MEDS: METFORMIN HCL 500 MG TABLET PO SCH (17:09)
[2020-05-08] MEDS: INSULIN REG, HUMAN 100 UNIT/ML 3 ML VIAL (PYX) SUBCUT SCH ×3 (00:12→11:40)
[2020-05-08] MEDS: NORMAL SALINE 1000 ML 1,000 ML IV PRN ×2 (01:40→08:13)
[2020-05-08 05:16] LABS: HEMATOCRIT 35.4 % (36.0-47.0); HEMOGLOBIN 12.2 g/dL (12.0-15.5); MEAN CORPUSCULAR HEMOGLOBIN 30.2 pg (27.0-33.4); MEAN CORPUSCULAR HGB CONC 34.3 g/dL (32.0-36.0); MEAN CORPUSCULAR VOLUME 88 fl (80-97); PLATELET COUNT 191 10^3/uL (150-450); RED BLOOD COUNT 4.03 10^6/uL (3.72-5.28); RED CELL DISTRIBUTION WIDTH 13.4 % (11.5-14.0); WHITE BLOOD COUNT 7.2 10^3/uL (4.0-10.5)
[2020-05-08 05:42] LABS: ANION GAP 7 (5-19); BLOOD UREA NITROGEN 8 mg/dL (7-20); CALCIUM 8.7 mg/dL (8.4-10.2); CARBON DIOXIDE 24 mmol/L (22-30); CHLORIDE 108 mmol/L (98-107); GLUCOSE 128 mg/dL (75-110); POTASSIUM 3.2 mmol/L (3.6-5.0)
[2020-05-08] MEDS: HEPARIN SOD (PORCINE) 5,000 UNIT/ML 1 ML VIAL SUBCUT SCH (06:48)
[2020-05-08] MEDS: METFORMIN HCL 500 MG TABLET PO SCH (07:37)
[2020-05-08] MEDS: POTASSIUM CHLORIDE 10 MEQ TABLET.ER PO SCH (09:10)
[2020-05-08] MEDS: PANTOPRAZOLE SODIUM 40 MG VIAL IV SCH (09:10)
[2020-05-08] MEDS: PHENOL/SODIUM PHENOLATE 100 SPRAY/177 ML BOTTLE PO PRN (09:13)
[2020-05-08] MEDS ORDERED: LISINOPRIL 10 MG TABLET PO SCH (10:00)
[2020-05-08] MEDS ORDERED: (PENDING PHARMACY ID) (Lisinopril/Hydrochlorothiazide [Lisinopril-Hctz 20-25 Mg Tab] 1 TAB PO SCH (10:00)
[2020-05-08] MEDS ORDERED: HYDROCHLOROTHIAZIDE 25 MG TABLET PO SCH (10:00)
--- NOTE | 2020-05-08 12:17 | PDOC DISCHARGE SUMMARY ---
Impression - Admit/DC Date/PCP Admission Date/Primary Care Provider: 05/03/20 22:17 COLT LOVETT DO Discharge Date: 05/08/20 - Discharge Diagnosis (1) Small bowel obstruction Is this a current diagnosis for this admission?: Yes (2) Hyperglycemia due to type 2 diabetes mellitus Is this a current diagnosis for this admission?: Yes (3) Hypercholesterolemia Is this a current diagnosis for this admission?: Yes (4) Hypertension Is this a current diagnosis for this admission?: Yes (5) Leukocytosis Is this a current diagnosis for this admission?: Yes (6) Hypokalemia Is this a current diagnosis for this admission?: Yes - Assessment Summary: Patient will be admitted to the medical floor where she will receive routine supportive and symptomatic cares. Dr. Dominguez will be consulted for surgical evaluation and treatment. She will be given IV fluids utilizing normal saline at 175 mL/h initially. She will receive morphine sulfate 2 to 4 mg IV every 2 hours as needed for pain. She will use Ativan 1 mg IV every 4 hours as needed for anxiety or restlessness. An NG tube has been placed per Dr. Dominguez's orders. CBCs, metabolic profiles, magnesium levels and additional laboratory and/or radiographic evaluations will be obtained as needed. Every 6 hours Accu- Cheks will be performed with sliding scale insulin for hyperglycemia and a hypoglycemic protocol in place. IV metoprolol and/or hydralazine will be used to control blood pressures greater than 160/100 while the patient is unable to take oral medications. She will be n.p.o. - Additional Information Resuscitation Status: Full Code Discharge Diet: Diabetic Discharge Activity: Activity As Tolerated, Other - Return to work on May 11 Referrals: COLT LOVETT DO [Primary Care Provider] - Follow up as needed (Follow up within 7 days of discharge ) Home Medications: Metformin HCl [Glucophage] 1,000 mg PO BID 09/29/14 Simvastatin 20 mg PO QPM 09/29/14 Lisinopril/Hydrochlorothiazide [Lisinopril-Hctz 20-25 mg Tab] 1 tab PO DAILY 11/13 Nicotine [Nicoderm 21 mg/24 Hr Transderm Patch] 1 each TD DAILYP PRN patch.td24 05/08/20 Phenol/Sodium Phenolate [Chloraseptic Sore Throat Starbuck 177 ml] 4 spray PO PRN PRN bottle 05/08/20 History of Present Illiness History of Present Illness: BLANCA LAMB is a 64 year old female who presents the emergency room with acute abdominal pain. She admits being awoken from sleep this morning by constant lower abdominal colicky pain that was of moderately severe intensity initially but progressively worsened over the course of the day becoming generalized throughout her abdomen, without radiation. She had a normal bowel movement and passed a large amount of flatus this morning without improvement or resolution of the abdominal pain. She tried taking Pepto-Bismol also without improvement. Her pain became severe and was accompanied by numerous episodes of vomiting and continuous nausea. Her abdominal pain was associated with episodic chills after vomiting. Her pain was worsened by oral ingestion of food or liquids. She denies other associated or accompanying signs and symptoms. She denies prior similar episodes. She has not identified any additional aggravating or ameliorating factors for her abdominal pain. In the emergency room she was found to have a small bowel obstruction by CT of the abdomen. She was evaluated by Dr. Dominguez and he has asked the hospitalist service to admit the patient and consult him for surgical care. Patient was subsequently admitted to the hospital for further evaluation treatment. Hospital Course Hospital Course: Bowel obstruction/ileus responded to conservative care. Nasogastric tube placed. Patient was n.p.o. and received IV fluids. With GI losses her serum potassium did drop. Her diabetes was fairly stable. When she began to pass air and fecal matter her nasogastric tube was removed. She tolerated clear liquids and advanced through regular food. (1) Small bowel obstruction Is this a current diagnosis for this admission?: Yes Plan: Patient tolerated clear liquids. Will advance to full liquids today (2) Hyperglycemia due to type 2 diabetes mellitus Qualifiers: Diabetes mellitus adjunct faculty for medical terminology insulin use: without intermediate use Qualified Code(s): E11.65 - Type 2 diabetes mellitus with hyperglycemia Is this a current diagnosis for this admission?: Yes Plan: Continue current regimen. Patient exhibits very good glucose control. As diet advances we may need to make adjustments. (3) Hypercholesterolemia Is this a current diagnosis for this admission?: Yes Plan: Resume statin therapy as diet advances (4) Hypertension Qualifiers: Hypertension type: essential hypertension Qualified Code(s): I10 - Essential (primary) hypertension Is this a current diagnosis for this admission?: Yes Plan: No changes at this time. Patient exhibits reasonable blood pressure control. (5) Leukocytosis Qualifiers: Leukocytosis type: unspecified Qualified Code(s): D72.829 - Elevated white blood cell count, unspecified Is this a current diagnosis for this admission?: Yes Plan: White blood cell count is now normal (6) Hypokalemia Is this a current diagnosis for this admission?: Yes Plan: Laboratory studies ordered for tomorrow. Patient did receive potassium chloride supplement for this (40 mEq by IV yesterday). Physical Exam Vital Signs: Temp Pulse Resp BP Pulse Ox 98.7 F 79 18 134/65 H 100 05/08/20 11:55 05/08/20 11:55 05/08/20 11:55 05/08/20 11:55 05/08/20 11:55 Intake & Output 05/07/20 05/08/20 05/09/20 06:59 06:59 06:59 Intake Total 2873 2380 786 Balance 2873 2380 786 Weight 64.3 kg General appearance: PRESENT: no acute distress, other - Sitting on the edge of the bed eating lunch Respiratory exam: PRESENT: clear to auscultation anitha, unlabored. ABSENT: tachypnea, wheezes Cardiovascular exam: PRESENT: RRR, +S1, +S2 GI/Abdominal exam: PRESENT: normal bowel sounds, soft. ABSENT: tenderness Neurological exam: PRESENT: alert, awake, oriented to person, oriented to place, oriented to time, oriented to situation, CN II-XII grossly intact Results Laboratory Results: WBC 7.2 10^3/uL (4.0-10.5) 05/08/20 04:49 RBC 4.03 10^6/uL (3.72-5.28) 05/08/20 04:49 Hgb 12.2 g/dL (12.0-15.5) 05/08/20 04:49 Hct 35.4 % (36.0-47.0) L 05/08/20 04:49 MCV 88 fl (80-97) 05/08/20 04:49 MCH 30.2 pg (27.0-33.4) 05/08/20 04:49 MCHC 34.3 g/dL (32.0-36.0) 05/08/20 04:49 RDW 13.4 % (11.5-14.0) 05/08/20 04:49 Plt Count 191 10^3/uL (150-450) 05/08/20 04:49 Lymph % (Auto) 15.1 % (13-45) 05/06/20 05:19 [place] % (Auto) 11.4 % (3-13) 05/06/20 05:19 Eos % (Auto) 0.0 % (0-6) 05/06/20 05:19 Baso % (Auto) 0.3 % (0-2) 05/06/20 05:19 Absolute Neuts (auto) 6.1 10^3/uL (1.7-8.2) 05/06/20 05:19 Absolute Lymphs (auto) 1.3 10^3/uL (0.5-4.7) 05/06/20 05:19 Absolute Monos (auto) 0.9 10^3/uL (0.1-1.4) 05/06/20 05:19 Absolute Eos (auto) 0.0 10^3/uL (0.0-0.6) 05/06/20 05:19 Absolute Basos (auto) 0.0 10^3/uL (0.0-0.2) 05/06/20 05:19 Seg Neutrophils % 73.2 % (42-78) 05/06/20 05:19 VBG pH 7.34 (7.30-7.42) 05/04/20 06:19 VBG pCO2 50.5 mmHg (35-63) 05/04/20 06:19 VBG HCO3 26.8 mmol/L (20-32) 05/04/20 06:19 VBG Base Excess 0.3 mmol/L 05/04/20 06:19 Sodium 139.0 mmol/L (137-145) 05/08/20 04:49 Potassium 3.2 mmol/L (3.6-5.0) L 05/08/20 04:49 Chloride 108 mmol/L (98-107) H 05/08/20 04:49 Carbon Dioxide 24 mmol/L (22-30) 05/08/20 04:49 Anion Gap 7 (5-19) 05/08/20 04:49 BUN 8 mg/dL (7-20) 05/08/20 04:49 Creatinine 0.57 mg/dL (0.52-1.25) 05/08/20 04:49 Est GFR ( Amer) > 60 (>60) 05/08/20 04:49 Est GFR (Non-Af Amer) Cancelled 05/04/20 06:19 Est GFR (MDRD) Non-Af > 60 (>60) 05/08/20 04:49 Glucose 128 mg/dL (75-110) H 05/08/20 04:49 POC Glucose 131 mg/dL (70-110) H 05/08/20 11:29 Hemoglobin A1c % 6.1 % (4.7-6.0) H 05/04/20 06:19 Lactic Acid 1.4 mmol/L (0.7-2.1) 05/04/20 06:19 Calcium 8.7 mg/dL (8.4-10.2) 05/08/20 04:49 Magnesium 2.0 mg/dL (1.6-2.3) 05/08/20 04:49 Total Bilirubin 0.9 mg/dL (0.2-1.3) 05/03/20 19:14 Direct Bilirubin 0.0 mg/dL (0.0-0.4) 05/03/20 19:14 Neonat Total Bilirubin Not Reportable 05/03/20 19:14 Neonat Direct Bilirubin Not Reportable 05/03/20 19:14 Neonat Indirect Bili Not Reportable 05/03/20 19:14 AST 38 U/L (14-36) H 05/03/20 19:14 ALT 16 U/L (<35) 05/03/20 19:14 Alkaline Phosphatase 70 U/L (38-126) 05/03/20 19:14 Total Protein 7.8 g/dL (6.3-8.2) 05/03/20 19:14 Albumin 4.7 g/dL (3.5-5.0) 05/03/20 19:14 Triglycerides 95 mg/dL (<150) 05/04/20 06:19 Cholesterol 166.63 mg/dL (0-200) 05/04/20 06:19 LDL Cholesterol Direct 74 mg/dL (<100) 05/04/20 06:19 VLDL Cholesterol 19.0 mg/dL (10-31) 05/04/20 06:19 HDL Cholesterol 70 mg/dL (>40) 05/04/20 06:19 Amylase 83 U/L (30-110) 05/04/20 06:19 Lipase 98.5 U/L (23-300) 05/04/20 06:19 EGFR Cancelled 05/04/20 06:19 TSH 0.33 uIU/mL (0.47-4.68) L 05/04/20 06:19 Urine Color YELLOW 05/03/20 19:14 Urine Appearance SLIGHTLY-CLOUDY 05/03/20 19:14 Urine pH 6.0 (5.0-9.0) 05/03/20 19:14 Ur Specific Reynolds 1.026 05/03/20 19:14 Urine Protein NEGATIVE mg/dL (NEGATIVE) 05/03/20 19:14 Urine Glucose (UA) NEGATIVE mg/dL (NEGATIVE) 05/03/20 19:14 Urine Ketones TRACE mg/dL (NEGATIVE) H 05/03/20 19:14 Urine Blood NEGATIVE (NEGATIVE) 05/03/20 19:14 Urine Nitrite NEGATIVE (NEGATIVE) 05/03/20 19:14 Urine Bilirubin NEGATIVE (NEGATIVE) 05/03/20 19:14 Urine Urobilinogen 2.0 mg/dL (<2.0) H 05/03/20 19:14 Ur Leukocyte Esterase NEGATIVE (NEGATIVE) 05/03/20 19:14 Urine WBC (Auto) 10 /HPF 05/03/20 19:14 Urine RBC (Auto) 2 /HPF 05/03/20 19:14 Urine Mucus (Auto) FEW /LPF 05/03/20 19:14 Urine Ascorbic Acid 40 (NEGATIVE) H 05/03/20 19:14 Impressions: Abdomen/Pelvis CT 05/03/20 18:56 IMPRESSION: Findings of moderate mid small bowel obstruction with transition point in the mid pelvis. Small amount of fluid layering in the pelvis. KUB X-Ray 05/04/20 12:08 IMPRESSION: Nasoenteric tube tip overlies gastric body. Persistent dilated small bowel loops measuring up to 3.7 cm compatible small bowel obstruction. Abdomen X-Ray 05/05/20 00:00 IMPRESSION: Stable, persistent appearance of partial small bowel obstruction noting gas and stool seen to the level of the rectum. Enteric tube proximal port terminates in the region of the gastroesophageal junction, consider advancing 5 to 7 cm. KUB X-Ray 05/05/20 22:50 IMPRESSION: NG tube tip in the upper stomach. Abdomen X-Ray 05/06/20 06:30 IMPRESSION: Persistent unchanged dilatation of the small bowel. The enteric tube is no longer visible. Small Bowel X-Ray 05/06/20 08:59 IMPRESSION: NO EVIDENCE OF SMALL BOWEL OR PROXIMAL COLONIC OBSTRUCTION. Plan Health Concerns: Presence of diabetes typically cancer lead to gastroparesis but not likely ileus. Advance diet slowly. Monitor closely for future episodes. Maintain bowel regularity. Plan of Treatment: Advance diet slowly. Return to previous medication regimen. Goals: Complete resolution of this episode of ileus without recurrence Time Spent: Greater than 30 Minutes Stroke Is this a Stroke Patient?: No Acute Heart Failure - Is this a Heart Failure Patient?: No
[2020-05-08 12:24] VITALS: BP 119/60
== END 2020-05-08 13:00 | disposition home or self-care (01) | DRG 390 ==
LOC: ER 18:35 → EH 22:17 → 4W 23:44
PROVIDERS: ADMIT Emergency Medicine; ATTEND Hospitalist
DX: K56.600 Partial intestinal obstruction, unspecified as to cause (principal); E11.65 Type 2 diabetes mellitus with hyperglycemia; E78.00 Pure hypercholesterolemia, unspecified; I10 Essential (primary) hypertension; D72.829 Elevated white blood cell count, unspecified; E87.6 Hypokalemia; E11.43 Type 2 diabetes mellitus with diabetic autonomic (poly)neuropathy; K31.84 Gastroparesis; E78.5 Hyperlipidemia, unspecified; Z60.2 Problems related to living alone; Z79.899 Other long term (current) drug therapy; Z79.84 Long term (current) use of oral hypoglycemic drugs; Z86.010 Personal history of colon polyps; Z83.3 Family history of diabetes mellitus; Z82.49 Family history of ischemic heart disease and other diseases of the circulatory system; Z79.82 Long term (current) use of aspirin
CPT/HCPCS: 36415; 74018; 74019; 74177; 74250; 80048; 80053; 80061; 81001; 82150; 82803; 82962; 83036; 83605; 83690; 83735; 84443; 85025; 85027; 94640; 96361; 96374; 96375; 99285; C9113; J1170; J1644; J2270; J2405; J2550; J3480; J3490; J7030